=== PATIENT | female | born 1935 | race Caucasian/White ===

== ENCOUNTER 2016-11-05 13:55 | Emergency (ER) | payer OTHER, MEDICARE ==
[~2016-11-05] VITALS: Ht 167.6 cm; Wt 70.3 kg
[~2016-11-05 13:55] MED LIST: ASPIRIN EC81 M1 PO; ATORVASTATIN CA80 M1 PO; CENTRUM SILVER1 EAC3 PO; CITALOPRAM HBR20 MG PO; LEVOTHYROXINE50 MCG PO; LISINOPRIL10 M1 PO; PLAVIX75 M1 PO; SIMVASTATIN20 M2 PO; TYLENOL EXTRA500 M2 PO; VITAMIN B-121000 MC3 PO
--- NOTE | 2016-11-05 14:29 | ED NECK/BACK PAIN COMPLAINT ---
History of Present Illness General Chief Complaint: Lower Extremity Problems Stated Complaint: L LEG/GROIN PAIN Source: patient, family Exam Limitations: no limitations Vital Signs & Intake/Output Vital Signs & Intake/Output Vital Signs Date Time Temp Pulse Resp B/P B/P Pulse O2 O2 Flow FiO2 Mean Ox Delivery Rate 11/05 1624 97.6 61 18 150/68 98 Room Air 11/05 1400 98.0 76 20 115/57 96 Room Air Allergies Coded Allergies: No Known Allergies (02/12/16) Reconcile Medications Acetaminophen (Tylenol Extra Strength) 500 MG TABLET 1 TAB PO Q4P PRN PAIN Aspirin (Ecotrin*) 81 MG TABLET.DR 81 MG PO DAILY blood thinner Atorvastatin Calcium 80 MG TABLET 80 MG PO 1700 cholestrol Citalopram Hydrobromide (Citalopram HBr) 20 MG TABLET 1 TAB PO DAILY MENTAL HEALTH (Reported) Cyanocobalamin (Vitamin B-12) 1,000 MCG TABLET 1 TAB PO DAILY SUPPLEMENT ( Reported) Levothyroxine Sodium 50 MCG TABLET 1 TAB PO DAILY THYROID (Reported) Lisinopril 10 MG TABLET 1 TAB PO DAILY BP (Reported) Methylprednisolone. (Medrol) 4 MG TAB.DS.PK 1 DP PO AD back pain 6 on day 1 then reduce by one tablet daily until gone Multivit-Min/FA/Lycopen/Lutein (Centrum Silver Tablet) 1 EACH TABLET 1 TAB PO DAILY SUPPLEMENT (Reported) Triage Note: PT TO ED WITH DAUGHTER FOR C/O LEFT LEG PAIN RADIATING TO LEFT GROIN X A FEW WEEKS. WORSE TODAY. COMES AND GOES. PAIN IS WORSE WITH WALKING. Triage Nurses Notes Reviewed? yes Onset: Abrupt Duration: months Timing: recent history Quality/Severity: moderate, severe Location: lumbar spine Radiation: upper legs, lower legs, feet Method of Injury: unknown Loss of Consciousness: no loss of consciousness HPI: 81-year-old female comes into the emergency room for further evaluation of left lower back pain that radiates down her left leg. Symptoms may going on for the past couple months getting progressively worse over the past week. Patient reports that she's now got weakness in her left lower leg has some difficulty with ambulation but is able to walk with a walker. Denies any urinary bowel dysfunction. Denies any abdominal pain. Nothing seems to make the symptoms better. Patient comes in for further evaluation (ALISSON FIELDS) Past History Travel History Traveled to [place] past 21 day No Medical History Any Pertinent Medical History? see below for history Neurological: TIA EENT: cataracts, hearing loss Cardiovascular: hypertension, hyperlipidemia Respiratory: NONE Gastrointestinal: NONE Hepatic: NONE Renal: chronic kidney disease, STAGE 2 Musculoskeletal: spinal stenosis, S/P LUMBAR LAMI 2007 Psychiatric: depression Endocrine: hypothyroidism Blood Disorders: DVT Cancer(s): UTERINE CANCER [employer]/Reproductive: TOTAL HYSTERECTOMY-1985 History of MRSA: No History of VRE: No History of CDIFF: No Pneumonia Vaccine: 12/11/15 Influenza Vaccine: 02/22/16 Surgical History Surgical History: non-contributory Psychosocial History Who do you live with Patient/Self Services at Home None What is your primary language Macedonian Tobacco Use: Quit >30 days ago ETOH Use: denies use Illicit Drug Use: denies illicit drug use Family History Hx Contributory? No (ALISSON FIELDS) Review of Systems Review of Systems Constitutional: Reports: no symptoms. Eyes: Reports: no symptoms. Ears, Nose, Throat, Mouth: Reports: no symptoms. Respiratory: Reports: no symptoms. Cardiovascular: Reports: no symptoms. Gastrointestinal/Abdominal: Reports: no symptoms. Musculoskeletal: Reports: see HPI. Skin: Reports: no symptoms. Neurological/Psychological: Reports: no symptoms. All Other Systems: Reviewed and Negative (ALISSON FIELDS) Physical Exam Physical Exam General Appearance: well developed/nourished, mild distress Head: atraumatic Eyes: Bilateral: normal appearance. Ears, Nose, Throat, Mouth: hearing grossly normal, moist mucous membrane Neck: normal inspection Respiratory: normal breath sounds, no respiratory distress Cardiovascular: regular rate/rhythm Back: normal inspection, left lower paraspinal tenderness Extremities: normal range of motion Neurologic/Psych: awake, alert, oriented x 3, normal mood/affect Skin: intact, normal color, warm/dry Comments: 3/5 strength left lower extremity, 5 out of 5 strength right lower extremity, Patient cannot straight leg raise her left lower extremity secondary to weakness Patellar reflexes 1+ left Patellar reflex 2+ right Gross sensation intact bilaterally and equal (ALISSON FIELDS) Progress Differential Diagnosis: aortic dissection, carotid dissection, cauda equina syn, herniated disc, myofascial strain, pyelo/UTI, sciatica, spinal cord inj, thoracic outlet syn, T/L spine injury Plan of Care: Orders Procedure Date/time Status BASIC METABOLIC PANEL 11/05 1607 Complete Laboratory Tests 11/05/16 1623: Anion Gap 10, Estimated GFR 33 L, BUN/Creatinine Ratio 22.7, Glucose 77, Calcium 9.2 Diagnostic Imaging: Viewed by Me: CT Scan. Discussed w/RAD: CT Scan. Radiology Impression: XAM TYPE: CAT - CT LUMB SPINE WO IV CONTRAST EXAMINATION: CT LUMBAR SPINE WITHOUT CONTRAST CLINICAL INFORMATION: Low back pain radiating down left leg with motor weakness. COMPARISON: None. TECHNIQUE: Helical non- contrast CT images were obtained through the lumbar spine and 1.25 and 2.5 mm axial reconstructions were reviewed along with sagittal and coronal MPRs. DLP: 714.91 mGy-cm FINDINGS: There are 5 nonrib-bearing lumbar vertebrae. There are sequelae of an instrumented posterior decompressions and fusions at L4, L5 and S1. There are bilateral pedicular screws in L4, L5 and S1. These are joined by vertical rods bilaterally and there is a transverse bar at L4-L5. The hardware appears intact. There is a moderate grade 1 anterolisthesis of L4 on L5, and there is moderate narrowing of intervertebral disc height at this level. There is narrowing of intervertebral disc height at L5-S1, and the vertebral bodies appear partially fused. There is also narrowing of intervertebral disc height at L1-L2 and L2-L3 with vacuum disc changes at both these levels. A small amount of air is noted in the disc toward the left at T12-L1. Bone mineralization is diffusely decreased, consistent with osteopenia/osteoporosis. Heterogenous density with coarsened trabeculae is noted in the body of L1, most consistent with a hemangioma. There is loss of vertebral body height of L2 anteriorly of approximately 35%. There is mild posterior protrusion of the superior body of L2 into the spinal canal, but there does not appear to be significant central stenosis. There is an IVC filter with the tip at the level of the right renal artery. There is extensive atheromatous calcification of the aorta, and the infrarenal aorta is slightly ectatic. There are severe degenerative changes in the bilateral sacroiliac joints. There are nonobstructive calculi versus intrarenal calcifications bilaterally. SPINAL LEVELS: T12-L1: The disc configuration is normal. The central canal and neural foramina are widely patent. The facet joints are normal. L1-L2: There is mild bilateral facet arthropathy. As described above there is posterior protrusion of the superior body of L2 into the spinal canal, end there is a compression fracture of L2. There is a diffuse disc bulge and there is bilateral foraminal narrowing. L2-L3: There is mild to moderate bilateral facet arthropathy with ligamenta flava hypertrophy. There is a posterior disc protrusion extending into the left greater than right neural foramina and there is likely impingement on the exiting left L2 nerve root. There appears to be [id number] central stenosis. L3-L4: There is severe bilateral facet arthropathy, and there is evidence of lateral mass fusions. There is evidence of posterior decompression. Posterior disc contour appears normal. The neural foramina are patent. L4-L5: There is good osseous fusion of the lateral masses bilaterally. There has been a posterior decompression. There is unroofing of the disc as a result of the anterolisthesis and there are bilateral foraminal disc protrusions. There is no central stenosis. L5-S1: There has been a posterior decompression and there are bilateral lateral fusions which appear solid. There is a posterior osteophytic ridge extending into the right neural foramen, and there may be impingement on the exiting right L5 nerve root. There is no central stenosis. IMPRESSION: 1. There are sequelae of prior instrumented posterior decompressions and fusions at L4, L5 and S1. The hardware appears intact. 2. There is an age-indeterminate compression fracture the body of L2 as described above. There is no significant central stenosis. 3. There is a grade 1 anterolisthesis of L4 on L5. There is no central stenosis at this level. 4. There is a left foraminal disc protrusion at L2-L3 with likely impingement on the exiting left L2 nerve root. There appears to be [id number] central stenosis. 5. There are degenerative changes at multiple other levels as described above. DICTATED BY: KEVIN MCGOVERN MD DATE/TIME DICTATED:11/05/161521 MULE DEVELOPER:WANG (ALISSON FIELDS) Departure Departure Disposition: HOME OR SELF CARE Condition: Stable Clinical Impression Primary Impression: Lumbar back pain with radiculopathy affecting left lower extremity Referrals: MILIND ABEBE,SANTOS ROLLINS MD,[facility] (PCP/Family) Additional Instructions: Take Medrol Dosepak as prescribed. Follow-up with neurosurgeon provided. Rest. Take tramadol at home. Return if any concerns worsening symptoms. Call number on slip for outpatient MRI of low back. Please go over all results of today's visit with your primary care doctor. Contact your primary care doctor to let them know you were here in the emergency room. There may be nonspecific findings which may not be related to your visit today here in the emergency room but may require further evaluation and chronic monitoring by your primary care doctor. If you had a laceration today the chance of foreign body always remains. You should follow-up with your primary care doctor for recheck in 3-5 days for a wound check. If you had an x-ray done there is a chance that a fracture could have been missed on initial read and you should follow-up with your primary care doctor for repeat x-rays if symptoms persist. If your blood pressure was elevated here in the emergency room please have rechecked by her primary care doctor within the next 48 hours by your primary care doctor. If you were prescribed a narcotic here in the emergency room or any type of controlled substances you're not allowed to drive while taking this medication or operate any type of heavy machinery. Narcotics can make you feel lightheaded dizziness nausea and can cause constipation. You may need to hop picker a stool softener. Thank you for choosing [facility] emergency room. Please return to the emergency room immediately if you have any other concerns worsening of symptoms. Departure Forms: Customer Survey General Discharge Information Prescriptions: Current Visit Scripts Methylprednisolone. (Medrol) 1 DP PO AD #1 DP 6 on day 1 then reduce by one tablet daily until gone Comments 11/05/2016 4:21:09 PM Patient clinically looks well. she has some motor deficits in the left lower extremity. Case is discussed with Dr. JOHNSON. Patient is going to be started on a Medrol Dosepak and will require close follow-up. Patient was provided a slip for an outpatient MRI. The symptoms have been going on for months but progressively worse over the past week. Milind decision-making. Case discussed with Dr. Yan. They understand plan of care. BMP sent off for patient because she needs an outpatient MRI with and without contrast and she will need a creatinine and GFR. Patient and family understand and agree with plan of care. Patient will take her tramadol at home for the pain control. Using a walker at home. (MABEL TORREZ,ALISSON) PA/HEARING AID REPAIR TECHNICIAN Co-Sign Statement Statement: ED Attending supervision documentation- [X] I saw and evaluated the patient. I have also reviewed all the pertinent lab results and diagnostic results. I agree with the findings and the plan of care as documented in the PA's/HEARING AID REPAIR TECHNICIAN's documentation. [X] I have reviewed the ED Record and agree with the PA's/HEARING AID REPAIR TECHNICIAN's documentation. [] Additions or exceptions (if any) to the PAs/HEARING AID REPAIR TECHNICIAN's note and plan are summarized below: [] (SHERI ABEBE,REY Modi)
--- NOTE | 2016-11-05 15:41 | CT SCAN REPORT ---
EXAMINATION: CT LUMBAR SPINE WITHOUT CONTRAST CLINICAL INFORMATION: Low back pain radiating down left leg with motor weakness. COMPARISON: None. TECHNIQUE: Helical non-contrast CT images were obtained through the lumbar spine and 1.25 and 2.5 mm axial reconstructions were reviewed along with sagittal and coronal MPRs. DLP: 714.91 mGy-cm FINDINGS: There are 5 nonrib-bearing lumbar vertebrae. There are sequelae of an instrumented posterior decompressions and fusions at L4, L5 and S1. There are bilateral pedicular screws in L4, L5 and S1. These are joined by vertical rods bilaterally and there is a transverse bar at L4-L5. The hardware appears intact. There is a moderate grade 1 anterolisthesis of L4 on L5, and there is moderate narrowing of intervertebral disc height at this level. There is narrowing of intervertebral disc height at L5-S1, and the vertebral bodies appear partially fused. There is also narrowing of intervertebral disc height at L1-L2 and L2-L3 with vacuum disc changes at both these levels. A small amount of air is noted in the disc toward the left at T12-L1. Bone mineralization is diffusely decreased, consistent with osteopenia/osteoporosis. Heterogenous density with coarsened trabeculae is noted in the body of L1, most consistent with a hemangioma. There is loss of vertebral body height of L2 anteriorly of approximately 35%. There is mild posterior protrusion of the superior body of L2 into the spinal canal, but there does not appear to be significant central stenosis. There is an IVC filter with the tip at the level of the right renal artery. There is extensive atheromatous calcification of the aorta, and the infrarenal aorta is slightly ectatic. There are severe degenerative changes in the bilateral sacroiliac joints. There are nonobstructive calculi versus intrarenal calcifications bilaterally. SPINAL LEVELS: T12-L1: The disc configuration is normal. The central canal and neural foramina are widely patent. The facet joints are normal. L1-L2: There is mild bilateral facet arthropathy. As described above there is posterior protrusion of the superior body of L2 into the spinal canal, end there is a compression fracture of L2. There is a diffuse disc bulge and there is bilateral foraminal narrowing. L2-L3: There is mild to moderate bilateral facet arthropathy with ligamenta flava hypertrophy. There is a posterior disc protrusion extending into the left greater than right neural foramina and there is likely impingement on the exiting left L2 nerve root. There appears to be [id number] central stenosis. L3-L4: There is severe bilateral facet arthropathy, and there is evidence of lateral mass fusions. There is evidence of posterior decompression. Posterior disc contour appears normal. The neural foramina are patent. L4-L5: There is good osseous fusion of the lateral masses bilaterally. There has been a posterior decompression. There is unroofing of the disc as a result of the anterolisthesis and there are bilateral foraminal disc protrusions. There is no central stenosis. L5-S1: There has been a posterior decompression and there are bilateral lateral fusions which appear solid. There is a posterior osteophytic ridge extending into the right neural foramen, and there may be impingement on the exiting right L5 nerve root. There is no central stenosis. IMPRESSION: 1. There are sequelae of prior instrumented posterior decompressions and fusions at L4, L5 and S1. The hardware appears intact. 2. There is an age-indeterminate compression fracture the body of L2 as described above. There is no significant central stenosis. 3. There is a grade 1 anterolisthesis of L4 on L5. There is no central stenosis at this level. 4. There is a left foraminal disc protrusion at L2-L3 with likely impingement on the exiting left L2 nerve root. There appears to be [id number] central stenosis. 5. There are degenerative changes at multiple other levels as described above.
[2016-11-05] MEDS ORDERED: MEDROL4 M2 PO (16:11)
[2016-11-05 16:24] VITALS: BP 150/68
== END 2016-11-05 16:36 ==
LOC: ERH 13:55
DX: M54.16 Radiculopathy, lumbar region (principal)

== ENCOUNTER 2017-10-13 10:44 | Inpatient (IN) | payer OTHER, MEDICARE ==
[~2017-10-13] VITALS: Ht 167.6 cm; Wt 63.7 kg
[~2017-10-13 10:44] MED LIST changes: +MEDROL4 M2 PO
[2017-10-13 11:47] LABS: ABSOLUTE BASOPHIL COUNT 0 /CUMM (0.0-0.2); ABSOLUTE EOSINOPHIL COUNT 0.1 /CUMM (0.0-0.7); ABSOLUTE GRANULOCYTE CT 2.6 /CUMM (1.4-6.5); ABSOLUTE LYMPH COUNT 1.4 /CUMM (1.2-3.4); ABSOLUTE MONOCYTE COUNT 0.4 /CUMM (0.10-0.60); BASOPHIL % 0.3 % (0.0-2.0); EOSINOPHIL % 1.9 % (0-5); GRANULOCYTE % 57.3 % (42.2-75.2); HEMATOCRIT 29.8 % (37-47); MEAN CORPUSCULAR HGB 30.6 PG (27.0-31.0); MEAN CORPUSCULAR HGB CONC 33.6 G/DL (33.0-37.0); MEAN CORPUSCULAR VOLUME 91.1 FL (81.0-99.0); PLATELET COUNT 185 /CUMM (130-400); RED BLOOD CELL CT 3.27 /CUMM (4.20-5.40); WHITE BLOOD CELL COUNT 4.6 /CUMM (4.8-10.8)
[2017-10-13] MEDS ORDERED: GABAPENTIN600 M1 PO (12:04)
[2017-10-13] MEDS ORDERED: EDARBYCLOR 40-1 EACH PO (12:05)
[2017-10-13] MEDS ORDERED: TRAMADOL HCL50 M1 PO (12:06)
--- NOTE | 2017-10-13 12:06 | ED AMS/SEIZURE/WEAK/DIZZY ---
History of Present Illness General Chief Complaint: General Adult Stated Complaint: SIB DR. REA FOR DEHYDRATION? Source: patient Exam Limitations: no limitations Vital Signs & Intake/Output Vital Signs & Intake/Output Vital Signs Date Time Temp Pulse Resp B/P B/P Pulse O2 O2 Flow FiO2 Mean Ox Delivery Rate 10/13 1525 97.7 71 19 149/72 95 Room Air Room Air 10/13 1309 97.7 60 19 149/68 99 Room Air Room Air 10/13 1048 97.3 80 20 128/67 96 Room Air Allergies Coded Allergies: No Known Allergies (02/12/16) Reconcile Medications Atorvastatin Calcium 80 MG TABLET 80 MG PO 1700 cholestrol Azilsartan Med/Chlorthalidone (Edarbyclor 40-12.5 MG Tablet) 40 MG-12.5 MG TABLET 1 TAB PO DAILY HEART (Reported) Gabapentin 600 MG TABLET 1 CAP PO DAILY CRAMPS (Reported) Levothyroxine Sodium 50 MCG TABLET 1 TAB PO DAILY THYROID (Reported) Tramadol HCl 50 MG TABLET 1 TAB PO DAILY PRN PAIN (Reported) Triage Note: PT TO ED FOR ? DEHYDRATION, SENT IN BY DR REA. PT STATES 1 WEEK AGO SHE HAD DIARRHEA, NO VOMITING. C/O FEELING WEAK AND TIRED. WENT FOR BLOODWORK THIS AM. DENIES ANY PAIN. Triage Nurses Notes Reviewed? yes Onset: Abrupt Duration: week(s): Timing: recent history HPI: This is an 82 y/o female with PMHx of HTN, elevated cholesterol and anxiety c/o being weak, "cant think straight" and possible dehydration. One week ago pt had an episode of diarrhea that lasted throughout the night. Pt states that she has been having similar episodes of diarrhea once every several mo. In the past week pt has decreased appetite and has not been drinking enough fluids. Pt went to see GI doctor 3 days ago to asses her diarrhea bouts. Pt was given stool culture kit as well as was advised to get her blood work done. Pt was feeling weak this am and was advised by her PCP to go to the ER. Pt denies N/V, dysuria, hematuria , hematochezia, abd pain, CP, SOB, bowel movements in past several days. (John TORREZ,Vance) Past History Travel History Traveled to [place] past 21 day No Medical History Any Pertinent Medical History? see below for history Neurological: TIA EENT: cataracts, hearing loss Cardiovascular: hypertension, hyperlipidemia Respiratory: NONE Gastrointestinal: NONE Hepatic: NONE Renal: chronic kidney disease, STAGE 2 Musculoskeletal: spinal stenosis, S/P LUMBAR LAMI 2007 Psychiatric: depression Endocrine: hypothyroidism Blood Disorders: DVT Cancer(s): UTERINE CANCER FULL TIME PARAMEDIC/Reproductive: TOTAL HYSTERECTOMY-1985 History of MRSA: No History of VRE: No History of CDIFF: No Surgical History Surgical History: non-contributory Psychosocial History Who do you live with Patient/Self Services at Home None What is your primary language Irish Tobacco Use: Quit >30 days ago ETOH Use: denies use Illicit Drug Use: denies illicit drug use Family History Hx Contributory? No (Vance Ewing) Review of Systems Review of Systems Constitutional: Reports: see HPI. EENTM: Reports: no symptoms. Respiratory: Reports: no symptoms. Cardiovascular: Reports: no symptoms. GI: Denies: abdominal pain, bloating, constipation, nausea, bloody stool, vomiting. Genitourinary: Denies: dysuria, frequency, hematuria, hesitation, pain, urgency. Musculoskeletal: Denies: no symptoms. Skin: Reports: no symptoms. Neurological/Psychological: Reports: no symptoms. Hematologic/Endocrine: Reports: no symptoms. Immunologic/Allergic: Reports: no symptoms. All Other Systems: Reviewed and Negative (Vance Ewing) Physical Exam Physical Exam General Appearance: no apparent distress, alert, awake, comfortable Head: normal appearance Eyes: Bilateral: normal appearance. Ears, Nose, Throat: normal ENT inspection, hearing grossly normal, moist mucous membranes Neck: normal inspection Respiratory: normal breath sounds, chest non-tender, no respiratory distress, lungs clear Cardiovascular: regular rate/rhythm Gastrointestinal: normal bowel sounds, soft, non-tender Back: decreased range of motion Neurologic/Psych: awake, alert Skin: normal color, warm/dry Core Measures ACS in differential dx? Yes CVA/TIA Diagnosis No Sepsis Present: No Sepsis Focused Exam Completed? No (Vance Ewing) Progress Differential Diagnosis: arrythmia, alcohol intoxication, dehydration, electrolyte imbalance, hypoglycemia, pneumonia, post-traumatic vertigo, UTI/ pyelo Plan of Care: Orders Procedure Date/time Status Regular Diet 10/13 D Active Patient Data 10/13 1554 Active Telemetry/Provisioning Specialist 10/13 1541 Active OXYGEN SETUP (GEN) 10/13 1535 Active Saline Lock 10/13 1535 Active Admit to inpatient 10/13 1535 Active Vital Signs 10/13 1535 Active Activity/Ambulation 10/13 1535 Active Code Status 10/13 1535 Active URINALYSIS 10/13 1205 Complete TROPONIN LEVEL 10/13 1106 Complete MAGNESIUM 10/13 1106 Complete COMPREHENSIVE METABOLIC PANEL 10/13 1106 Complete CBC WITHOUT DIFFERENTIAL 10/13 1106 Complete EKG 10/13 1106 Active Laboratory Tests 10/13/17 1349: Anion Gap 9, Estimated GFR 31 L, BUN/Creatinine Ratio 25.0, Glucose 84, Calcium 8.7, Magnesium 1.4 L, Total Bilirubin 0.7, AST 35, ALT 27, Alkaline Phosphatase 57, Troponin I < 0.01, Total Protein 6.3, Albumin 3.3 L, Globulin 3.0, Albumin/ Globulin Ratio 1.1 10/13/17 1300: Urine Color YEL, Urine Clarity CLEAR, Urine pH 6.0, Ur Specific [place] <= 1.005 , Urine Protein NEG, Urine Ketones NEG, Urine Nitrite NEG, Urine Bilirubin NEG, Urine Urobilinogen 0.2, Ur Leukocyte Esterase NEG, Ur Microscopic EXAM NOT REQUIRED, Urine Hemoglobin NEG, Urine Glucose NEG 10/13/17 1224: CBC w Diff NO MAN DIFF REQ, RBC 3.41 L, MCV 90.2, MCH 30.7, MCHC 34.0, RDW 12.4 , MPV 9.0, Gran % 55.9, Lymphocytes % 34.1, Monocytes % 8.0, Eosinophils % 1.4, Basophils % 0.6, Absolute Granulocytes 2.8, Absolute Lymphocytes 1.7, Absolute Monocytes 0.4, Absolute Eosinophils 0.1, Absolute Basophils 0 Diagnostic Imaging: Viewed by Me: Radiology Read. Discussed w/RAD: Radiology Read. Radiology Impression: PATIENT: SHANELL ARMSTRONG PRESENT AGE: 82 PATIENT ACCOUNT NO: [id number] : 33 LOCATION: [facility] ORDERING PHYSICIAN: Vance TORREZ SERVICE DATE: 10/13/17 EXAM TYPE : RAD - XRY-PORTABLE CHEST XRAY EXAMINATION: XR PORTABLE CHEST CLINICAL INFORMATION: Increasing weakness. COMPARISON: Multiple chest x-ray dated 2006 TECHNIQUE: Portable frontal view of the chest was obtained. FINDINGS: Cardiomediastinal silhouette is within normal limits. Mild prominence of the pulmonary markings compatible with chronic change. No acute airspace opacity. There is no pleural effusion. Calcified pleural plaque left apex noted again. IMPRESSION: No acute pulmonary disease. Chronic changes. DICTATED BY: Hugo Thomas MD DATE/TIME DICTATED:10/13/171245 [address] LIAISON:WANG DATE/TIME TRANSCRIBED:10/13/171245 CONFIDENTIAL, DO NOT COPY WITHOUT APPROPRIATE AUTHORIZATION. <Electronically signed in Other Vendor System> SIGNED BY: Hugo Thomas MD 10/13/17 1250 Initial ED EKG: normal sinus rhythm, rate (60), peaked T waves (Vance Ewing) Departure Departure Disposition: STILL A PATIENT Condition: Stable Clinical Impression Primary Impression: Hyperkalemia Secondary Impressions: Acute electrocardiogram changes Referrals: Heron Rea MD (PCP/Family) Departure Forms: Customer Survey General Discharge Information Admission Note Spoke With: Juan Manuel Aggarwal MD Documentation of Exam: Documentation of any treatments & extenuating circumstances including Concerns Regarding Discharge (functional status, medication knowledge or non-compliance, living conditions, etc.) that warrant an admission rather than observation: Patient will require gentle IV hydration. Currently telemetry. Cardiac consultation. Repeat labs. Calcium gluconate. Medically not safe for discharge. Acute EKG changes. (Vance Ewing) PA/FRONT OFFICE SPECIALIST Co-Sign Statement Statement: ED Attending supervision documentation- x I saw and evaluated the patient. I have also reviewed all the pertinent lab results and diagnostic results. I agree with the findings and the plan of care as documented in the PA's/FRONT OFFICE SPECIALIST's documentation. Weak with diarrhea. Peaked twaves on EKG, K 5.6, chronic renal insufficiency at baseline. [] I have reviewed the ED Record and agree with the PA's/FRONT OFFICE SPECIALIST's documentation. [] Additions or exceptions (if any) to the PAs/FRONT OFFICE SPECIALIST's note and plan are summarized below: [] (Lani ABEBE,Amando) Critical Care Note Critical Care Note Critical Care Time: 30-74 min (35) (Vance Ewing)
--- NOTE | 2017-10-13 12:50 | RADIOLOGY REPORT ---
EXAMINATION: XR PORTABLE CHEST CLINICAL INFORMATION: Increasing weakness. COMPARISON: Multiple chest x-ray dated 07/14/2006 TECHNIQUE: Portable frontal view of the chest was obtained. FINDINGS: Cardiomediastinal silhouette is within normal limits. Mild prominence of the pulmonary markings compatible with chronic change. No acute airspace opacity. There is no pleural effusion. Calcified pleural plaque left apex noted again. IMPRESSION: No acute pulmonary disease. Chronic changes.
[2017-10-13 12:57] LABS: ABSOLUTE BASOPHIL COUNT 0 /CUMM (0.0-0.2); ABSOLUTE EOSINOPHIL COUNT 0.1 /CUMM (0.0-0.7); ABSOLUTE GRANULOCYTE CT 2.8 /CUMM (1.4-6.5); ABSOLUTE LYMPH COUNT 1.7 /CUMM (1.2-3.4); ABSOLUTE MONOCYTE COUNT 0.4 /CUMM (0.10-0.60); BASOPHIL % 0.6 % (0.0-2.0); EOSINOPHIL % 1.4 % (0-5); GRANULOCYTE % 55.9 % (42.2-75.2); HEMATOCRIT 30.8 % (37-47); MEAN CORPUSCULAR HGB 30.7 PG (27.0-31.0); MEAN CORPUSCULAR VOLUME 90.2 FL (81.0-99.0); PLATELET COUNT 186 /CUMM (130-400); RBC DISTRIBUTION WIDTH 12.4 % (11.5-14.5); RED BLOOD CELL CT 3.41 /CUMM (4.20-5.40)
--- NOTE | 2017-10-13 15:54 | History & Physical ---
Sourav ABEBE,[facility] 10/13/17 1554: General Information and HPI MD Statement: I have seen and personally examined SHANELL ARMSTRONG and documented this H&P. The patient is a 82 year old F who presented with a patient stated chief complaint of []. Source of Information: patient, old records Exam Limitations: no limitations History of Present Illness: The patient is a 82-year-old female with past medical history hypertension, hyperlipidemia and hypothyroidism. She presented to [facility] ED with complaint of generalized weakness and fatigue. Patient states that she has been having ongoing diarrhea for a long time. She has these spells every few months. She is currently being evaluated by GI services. She denies getting colonoscopy/endoscopy for the evaluation of diarrhea. She reports that she was told to keep a logbook to see what kind of food makes the diarrhea worse. She also seems to think that is somewhat stress related as well. About 1 week ago patient had 5 diarrheal episodes on Friday which lasted just for 1 day. She reported loose watery stools. As per patient they were not foul -smelling and nonbloody. Diarrheal episodes were also related with spasmodic abdominal pain. She did not experience any nausea or vomiting. She got in touch with GI who ordered blood test and stool tests. Today she went to rehabilitation program where her instructor thought that she might be dehydrated and advised her to go to her PCP. She called the PCPs office who recommended the patient go to [facility] ED for further evaluation. Denies any recent travel. She also denies any sick contacts. She denies any recent antibiotic course. She also denies any takeout food. Denies any abdominal surgeries other than hysterectomy Review of system is positive for feeling chills She denies any headaches change in vision chest pain shortness of breath abdominal pain or diarrhea, nausea at present. Does not report any urinary symptoms. There is no family history of ulcerative colitis/Crohn's disease in the family. Allergies/Medications Allergies: Coded Allergies: No Known Allergies (02/12/16) Home Med list Atorvastatin Calcium 80 MG TABLET 80 MG PO 1700 cholestrol Azilsartan Med/Chlorthalidone (Edarbyclor 40-12.5 MG Tablet) 40 MG-12.5 MG TABLET 1 TAB PO DAILY HEART (Reported) Gabapentin 600 MG TABLET 1 CAP PO DAILY CRAMPS (Reported) Levothyroxine Sodium 50 MCG TABLET 1 TAB PO DAILY THYROID (Reported) Psyllium Husk (Metamucil) 3.4 GRAM/5.4 GRAM POWDER 1 PAC PO DAILY SUPPLEMENT (Reported) Tramadol HCl 50 MG TABLET 1 TAB PO DAILY PRN PAIN (Reported) Vortioxetine Hydrobromide (Trintellix) 5 MG TABLET 10 MG PO DAILY MENTAL HEALTH (Reported) Past History Travel History Traveled to [place] past 21 day No Medical History Neurological: TIA EENT: cataracts, hearing loss Cardiovascular: hypertension, hyperlipidemia Respiratory: NONE Gastrointestinal: NONE Hepatic: NONE Renal: chronic kidney disease, STAGE 2 Musculoskeletal: spinal stenosis, S/P LUMBAR LAMI 2007 Psychiatric: depression Endocrine: hypothyroidism Blood Disorders: DVT Cancer(s): UTERINE CANCER 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 Home Who Do You Live With? self Services at Home: None Primary Language: Bermudian Smoking Status: Former Smoker ETOH Use: denies use Illicit Drug Use: denies illicit drug use Living Will? yes Functional Ability ADLs Independent: dressing, eating, toileting, bathing. Ambulation: independent IADLs Independent: shopping, housework, finances, food prep, telephone, transportation , medication admin. Review of Systems Review of Systems Constitutional: Reports: see HPI. Exam & Diagnostic Data Last 24 Hrs of Vital Signs/I&O Vital Signs Date Time Temp Pulse Resp B/P B/P Pulse O2 O2 Flow FiO2 Mean Ox Delivery Rate 10/13 2033 97.5 65 19 130/76 98 10/13 1918 97.8 72 20 159/70 98 Room Air 10/13 1852 98.7 76 18 165/77 96 Room Air 10/13 1809 98 Room Air 10/13 1525 97.7 71 19 149/72 95 Room Air Room Air 10/13 1309 97.7 60 19 149/68 99 Room Air Room Air 10/13 1048 97.3 80 20 128/67 96 Room Air Intake & Output 10/13 1600 10/13 0800 10/13 0000 Intake Total Output Total Balance Patient 140 lb Weight Weight Estimated Measurement Method Physical Exam General Appearance Alert, Oriented X3, Cooperative, No Acute Distress Skin No Rashes HEENT Atraumatic, PERRLA, EOMI, mucous memberanes dry Neck Supple, No JVD Lymphatic Cervical nl Cardiovascular Normal S1, Normal S2, No Murmurs Lungs Clear to Auscultation, Normal Air Movement Abdomen Normal Bowel Sounds, Soft, No Tenderness, No Hepatospenomegaly Neurological Normal Gait, Normal Speech, Normal Tone, Cranial Nerves 3-12 NL Extremities No Edema Last 24 Hrs of Labs/Alverto: Laboratory Tests 10/13/17 1349: Anion Gap 9, Estimated GFR 31 L, BUN/Creatinine Ratio 25.0, Glucose 84, Calcium 8.7, Magnesium 1.4 L, Total Bilirubin 0.7, AST 35, ALT 27, Alkaline Phosphatase 57, Troponin I < 0.01, Total Protein 6.3, Albumin 3.3 L, Globulin 3.0, Albumin/ Globulin Ratio 1.1 10/13/17 1300: Urine Color YEL, Urine Clarity CLEAR, Urine pH 6.0, Ur Specific [place] <= 1.005 , Urine Protein NEG, Urine Ketones NEG, Urine Nitrite NEG, Urine Bilirubin NEG, Urine Urobilinogen 0.2, Ur Leukocyte Esterase NEG, Ur Microscopic EXAM NOT REQUIRED, Urine Hemoglobin NEG, Urine Glucose NEG 10/13/17 1224: CBC w Diff NO MAN DIFF REQ, RBC 3.41 L, MCV 90.2, MCH 30.7, MCHC 34.0, RDW 12.4 , MPV 9.0, Gran % 55.9, Lymphocytes % 34.1, Monocytes % 8.0, Eosinophils % 1.4, Basophils % 0.6, Absolute Granulocytes 2.8, Absolute Lymphocytes 1.7, Absolute Monocytes 0.4, Absolute Eosinophils 0.1, Absolute Basophils 0 Microbiology 10/13 1713 STOOL: Clostridium difficile Toxin A & B - COLB Diagnostic Data EKG Results Normal sinus rhythm with peaking of T waves CXR Results IMPRESSION: No acute pulmonary disease. Chronic changes. Assessment/Plan Assessment: The patient is a 82-year-old female with past medical historyuterine cancer s/p hysterectomy, DVT s/p IVC not on AC, hypertension, hyperlipidemia and hypothyroidism. She presented to [facility] ED with complaint of generalized weakness and fatigue. She was sent in by her PCP Dr. Bundy for further evaluation She vitals within normal limits Admission labs are significant for H/H 10.5/30.8, potassium 5.6, chloride 111, bicarb 20, creatinine 1.6 with baseline In the ED patient received Kayexalate 60 mg PO ONCE, Novoling 10 units IV ONCE, Dextrose 25g IV ONCE, Calcium Gluconate 1g IV ONCE The patient is being admitted to telemetry floor for treatment and evaluation of following conditions #Hyperkalemia The patient presented with EKG changes and complaint of fatigue and weakness. She received above-mentioned intervention in the ED. Her hypokalemia is most likely coming from dehydration leading to HPI, and use of ARB. -We are going to repeat BP at 10 PM to monitor potassium level. -Hold ARB/HCTZ for now #GEORGETTE She has mild GEORGETTE in setting of dehydration with creatinine of 1.6. With her baseline being around 1.5 -Gentle IV hydration -Avoid nephrotoxins #Non-anion gap metabolic acidosis Bicarb 20 probably due to non-anion gap metabolic acidosis is likely in setting of diarrhea -Continue to monitor -D5 half-normal saline at the rate of 75 mL/h #Chronic diarrhea with acute exacerbation -Currently being worked up outpatient -Check C. difficile if any diarrheal episode -Outpatient GI follow-up, will consider GI evaluation and patient if her stay is prolonged #Hx of hypertension, hyperlipidemia, hypothyroidism Continue atorvastatin, levothyroxine, ARB/HCTZ remain on hold in setting of hyperkalemia #Regular diet/DVT prophylaxis with subcutaneous heparin/DNR/DNI Core Measures/Misc (01/19) Acute Coronary Syndrome ACS Diagnosis: No Congestive Heart Failure Congestive Heart Failure Diagnosis No Cerebrovascular Accident CVA/TIA Diagnosis: No VTE (View Protocol) VTE Risk Factors Age>40 No Mechanical VTE Prophylaxis d/t N/A MechProphylax Ordered No VTE Pharm Prophylaxis d/t NA PharmProphylax ordered Sepsis (View protocol) Sepsis Present: No If YES complete Sepsis Event Note If YES complete Sepsis Event Note Demetrio Valenzuela MD 10/13/17 1700: Assessment/Plan As Ranked By This Provider Problem List: 1. Hyperkalemia Core Measures/Misc (01/19) Sepsis (View protocol) If YES complete Sepsis Event Note If YES complete Sepsis Event Note Resident Review Statement Other Findings: History of Present Illness 82 year old woman with past medical history of hypertension, hyperlipidemia, anxiety, depression, CKD, spinal stenosis, hypothyroidism, DVT s/p IVC not on AC , and uterine cancer s/p hysterectomy sent in by her PCP for elevated potassium. Patient reports have bouts of diarrhea monthly for a "long time". She was seen by a toy electric train repairer in the past for evaluation of this. She followed with their office three days prior who ordered blood and stool tests. Complete blood count demonstrated a potassium of 5.8 for which patient was referred to the. She reports occasional chills with fatigue and weakness. Her bowel movements a loose, non-bloody, and brown. She admits to 5+ episodes the previous night. She denies any recent travel, antibiotics, consumption of raw/undercooked/ foods, but does admit have her lexapro switched to a new antidepressant that began with a "T" recently. Review of Systems She otherwise denies any fever, chest pain, shortness of breath, abdominal pain, nausea, vomiting, urinary complaints. Objective Vitals Temp 97.3-97.7, HR 60-83, RR 19-20, SBP 128-149, O2 95-99 Physical Exam -General: well developed, thin elderly woman in no acute distress -HEENT: NCAT, PERRL, EOMI, anciteric sclera, moist mucous membranes -Neck: Supple, no JVD, trachea midline -Cardio: Normal S1/S2 w/o m/g/r; RRR -Pulmonary: CTA bilaterally -Abdomen: Soft, NT, ND, BS+ -Neuro: Awake and alert, CN II-XII grossly intact -Extremities: normal pulses, no edema Labs / Imaging / Studies -CBC: WBC 5.0, Hgb 10.5, Hct 30.8, Plt 186 -BMP: Na 141, K 5.6, Cl 111, CO2 20, BUN 40, Creatinine 1.6, AG 9, Glu 84 -LFT: within normal limits -Misc: Mg 1.4, Troponin <0.01 -Urinalysis: unremarkable -CXR: unremarkable -EKG: NSR with peaked t-waves -ED intervention: * Kayexalate 60 mg PO ONCE * Novoling 10 units IV ONCE * Dextrose 25g IV ONCE * Calcium Gluconate 1g IV ONCE Assessment 82 year old woman with multiple medical problems seen for evaluation of hyperkalemia and ongoing diarrhea. Clinically patient currently feels well but is concerned about her constant loose bowel movements. Vitals signed and physical exam remain within normal limits. Significant labs include potassium of 5.6 creatinine is 1.6(baseline) and magnesium of 1.4. CBC, urinalysis, and troponin are unremarkable. CXR is negative. EKG demonstrates peaked t-waves. Patient received treatment for the hyperkalemia in the ED with kayexalate, insulin/dextrose, and calcium gluconate. Clinically patient appears to have worsening diarrhea of unclear etiology that is currently being worked up as an outpatient. He hyperkalemia is most likely secondary to the use of her ARB and dehydration. Patient is being admitted to the telemetry floor for further lab monitoring and control of her potassium and potentially blood pressure. Problem List -Hyperkalemia with EKG changes, likely due to dehydration and ARB -Acute on Chronic Diarrhea, etiology unclear -Hypertension -Hyperlipidemia -Anxiety / Depression -CKD -Spinal stenosis -Hypothyroidism -History of DVT s/p IVC not on AC -History of uterine cancer s/p hysterectomy Plan -Admit to telemetry -Avoid nephrotoxic agents -Guaic all stools -NS @ 75mL/hr -Hold ARB/HCTZ due to hyperkalemia -Continue: atorvastatin, levothyroxine, gabapentin, tramadol -Repeat serum chemistry tonight -C. diff toxin -Pain control with tramadol -Regular Diet -DVT PPx with subcutaneous heparin -FULL CODE AlessiaJuan Manuel 10/13/17 1806: Core Measures/Misc (01/19) Sepsis (View protocol) If YES complete Sepsis Event Note If YES complete Sepsis Event Note Attending MD Review Statement Attending Statement Attending MD Statement: examined this patient, discuss w/resident/PA/SENIOR LINUX UNIX ADMINISTRATOR, agreed w/resident/PA/SENIOR LINUX UNIX ADMINISTRATOR, reviewed EMR data (avail), discussed with nursing Attending Assessment/Plan: 82-year-old female with past medical history of hypertension and hyperlipidemia presented to the ER with chief complaint of weakness. Patient had episodes of diarrhea 1 week ago on Friday for 1 day. She had about 5 bowel movements at night and this happens every few months. The bowel movements were lose and watery with no blood. Patient went to see his GI doctor and was told to get some blood work done for which she went today. Patient after the blood work and went to some exercise place where she was found to be too weak and was told to go to her PCP. Patient called the PCP office and they told her to go to the ER. Hyperkalemia-with potassium of 5.6 with EKG changes of peaked T waves. Patient has had previous episodes of hyperkalemia with last one being 5.8 in September 2017. We will hold her ARB. We will repeat her potassium at night and if not getting better will give kayexelate. Will monitor her on telemetry . Her creatinine is slightly up from baseline. will give her gentle hydration.
[2017-10-13] MEDS ORDERED: METAMUCIL660 GM PO (16:59)
--- NOTE | 2017-10-13 18:06 | Admission Certification ---
Admission Certification Certification Statement - As attending physician, I certify that at the time of - admission, based on clinical presentation, severity of - symptoms, need for further diagnostic testing and - therapeutic interventions, and risk of adverse outcomes - without in-hospital treatment, in my clinical assessment, - this patient requires an acute hospital stay for a minimum - of two nights or longer. I have also considered psychsocial - factors such as support system, advanced age, financial - issues, cognitive issues, and failed out-patient treatments, - past re-admission history, safety of patient, and lack of - compliance as applicable. Specific rationale supporting this admission is: hyperkalemia with ekg changes
[2017-10-13 20:34] VITALS: BP 130/76
[2017-10-13] MEDS ORDERED: TRINTELLIX5 MG PO (21:27)
[2017-10-13 23:06] VITALS: BP 146/90
[2017-10-14 07:06] VITALS: BP 122/60
--- NOTE | 2017-10-14 07:28 | PN- Housestaff ---
Sourav ABEBE,[facility] 10/14/17 0727: Subjective Follow-up For: Hyperkalemia with EKG changes Acute renal injury Tele-Events Since Last Visit: Normal sinus rhythm with heart rate ranging in 60s Subjective: Seen and examined. Resting comfortably. No overnight acute events. Patient reports she was unable to sleep well because of the hospital setting. Denies any chest pain palpitations feels improvement in symptoms. Review of Systems Constitutional: Reports: see HPI. Objective Last 24 Hrs of Vital Signs/I&O Vital Signs Date Time Temp Pulse Resp B/P B/P Pulse O2 O2 Flow FiO2 Mean Ox Delivery Rate 10/14 0706 97.9 60 18 122/60 97 Room Air 10/13 2306 98.1 65 16 146/90 95 10/13 2034 97.5 65 19 130/76 98 10/13 1918 97.8 72 20 159/70 98 Room Air 10/13 1852 98.7 76 18 165/77 96 Room Air 10/13 1809 98 Room Air 10/13 1525 97.7 71 19 149/72 95 Room Air Room Air 10/13 1309 97.7 60 19 149/68 99 Room Air Room Air 10/13 1048 97.3 80 20 128/67 96 Room Air Intake & Output 10/14 0800 10/14 0000 10/13 1600 Intake Total 660 1195 Output Total Balance 660 1195 Intake, IV 600 1075 Intake, Oral 60 120 Patient 138 lb 140 lb Weight Weight Bed scale Estimated Measurement Method Physical Exam General Appearance: Alert, Oriented X3, Cooperative Cardiovascular: Normal S1, Normal S2 Lungs: Clear to Auscultation, Normal Air Movement Abdomen: Normal Bowel Sounds, Soft, No Tenderness Neurological: Normal Speech Current Medications: Current Medications Sig/Mikaela Start time Last Medication Dose Route Stop Time Status Admin Acetaminophen 650 MG Q6P PRN 10/13 1715 AC PO Atorvastatin Calcium 80 MG 1700 10/13 1700 AC 10/13 PO 1756 Calcium Gluconate 0 .STK-MED ONE 10/13 1735 DC IV Calcium Gluconate 1 GM ONCE ONE 10/13 1545 DC 10/13 Sodium Chloride 100 ML IV 10/13 1644 1759 Dextrose 25 GM ONCE ONE 10/13 1930 DC 10/13 IV 10/13 1931 1946 Dextrose 25 GM ONCE ONE 10/13 1545 DC 10/13 IV 10/13 1546 1759 Dextrose/Sodium 1,000 ML Q13H 10/13 2130 AC 10/13 Chloride IV 2210 Gabapentin 600 MG DAILY 10/14 0900 DC PO Gabapentin 600 MG 2100 10/13 2359 AC 10/13 PO 2316 Heparin Sodium 5,000 UNIT Q8 10/13 2200 AC 10/14 (Porcine) SC 0624 Insulin Human Regular 10 UNITS ONCE ONE 10/13 1545 DC 10/13 IV 10/13 1546 1800 Levothyroxine Sodium 0.05 MG DAILY 10/14 09 AC 10/14 PO 0739 Non-Formulary 0 SEE ADMIN CRITERIA 10/13 214 UNV Medication ANY Sodium Chloride 1,000 ML Q13H 10/13 2130 CAN IV Sodium Polystyrene 0 .STK-MED ONE 10/13 1734 DC Sulfonate .ROUTE Sodium Polystyrene 60 ML ONCE ONE 10/13 1545 DC 10/13 Sulfonate PO 10/13 1546 1759 Tramadol HCl 50 MG DAILY PRN 10/13 1700 AC PO Last 24 Hrs of Lab/Alverto Results Last 24 Hrs of Labs/Mics: Laboratory Tests 10/14/17 0631: Sodium Pending, Potassium Pending, Chloride Pending, Carbon Dioxide Pending, Anion Gap Pending, BUN Pending, Creatinine Pending, BUN/Creatinine Ratio Pending , Magnesium Pending, CBC w Diff NO MAN DIFF REQ, RBC 3.05 L, MCV 90.5, MCH 30.2 , MCHC 33.4, RDW 12.9, MPV 9.1, Gran % 50.5, Lymphocytes % 39.5, Monocytes % 8.6 , Eosinophils % 1.2, Basophils % 0.2, Absolute Granulocytes 2.6, Absolute Lymphocytes 2.0, Absolute Monocytes 0.4, Absolute Eosinophils 0.1, Absolute Basophils 0 10/13/17 2305: Anion Gap 8, Estimated GFR 33 L, BUN/Creatinine Ratio 21.3, Magnesium 1.3 L 10/13/17 1349: Anion Gap 9, Estimated GFR 31 L, BUN/Creatinine Ratio 25.0, Glucose 84, Calcium 8.7, Magnesium 1.4 L, Total Bilirubin 0.7, AST 35, ALT 27, Alkaline Phosphatase 57, Troponin I < 0.01, Total Protein 6.3, Albumin 3.3 L, Globulin 3.0, Albumin/ Globulin Ratio 1.1 10/13/17 1300: Urine Color YEL, Urine Clarity CLEAR, Urine pH 6.0, Ur Specific [place] <= 1.005 , Urine Protein NEG, Urine Ketones NEG, Urine Nitrite NEG, Urine Bilirubin NEG, Urine Urobilinogen 0.2, Ur Leukocyte Esterase NEG, Ur Microscopic EXAM NOT REQUIRED, Urine Hemoglobin NEG, Urine Glucose NEG 10/13/17 1224: CBC w Diff NO MAN DIFF REQ, RBC 3.41 L, MCV 90.2, MCH 30.7, MCHC 34.0, RDW 12.4 , MPV 9.0, Gran % 55.9, Lymphocytes % 34.1, Monocytes % 8.0, Eosinophils % 1.4, Basophils % 0.6, Absolute Granulocytes 2.8, Absolute Lymphocytes 1.7, Absolute Monocytes 0.4, Absolute Eosinophils 0.1, Absolute Basophils 0 Microbiology 10/13 1713 STOOL: Clostridium difficile Toxin A & B - COLB Assessment/Plan Assessment: The patient is a 82-year-old female with past medical historyuterine cancer s/p hysterectomy, DVT s/p IVC not on AC, hypertension, hyperlipidemia and hypothyroidism. She presented to [place] ED with complaint of generalized weakness and fatigue. She was sent in by her PCP Dr. Bundy for further evaluation The patient is being evaluated for following condition #Hyperkalemia-reolved The patient presented with EKG changes and complaint of fatigue and weakness she received calcium gluconate Novolin dextrose and Kayexalate in the ED. Her hyperkalemia was most likely secondary to dehydration leading to ARB added insult with use of ARB -Resolved -On discharge we will be discontinuing the ARB #GEORGETTE-resolved She has mild GEORGETTE in setting of dehydration with creatinine of 1.6. With her baseline being around 1.5, resolved with gentle IV hydration back to baseline at 1.5-1.4 #Non-anion gap metabolic acidosis resolved #Chronic diarrhea with acute exacerbation -Currently being worked up outpatient -Check C. difficile if any diarrheal episode #Hx of hypertension, hyperlipidemia, hypothyroidism Continue atorvastatin, levothyroxine, ARB/HCTZ remain on hold in setting of hyperkalemia #Regular diet/DVT prophylaxis with subcutaneous heparin/DNR/DNI Problem List: 1. Hyperkalemia Pain Ratin Pain Location: na Pain Goal: Pain 4 or less Pain Plan: prn Tomorrow's Labs & Rationales: bep Apergis MD,Katiana 10/14/17 1158: Attending MD Review Statement Attending Statement Attending MD Statement: examined this patient, discuss w/resident/PA/BOILER RIVETER, agreed w/resident/PA/BOILER RIVETER, reviewed EMR data (avail) Attending Assessment/Plan: 82F PMH HTN, HLD, anxiety, CKD stage 3a, spinal stenosis, hypothyroidism, DVT s/ p IVC not on AC, and uterine cancer s/p hysterectomy admitted with dehydration, weakness, hyperkalemia, and EKG changes. Patient had diarrhea and decreased PO intake in the two days prior to admission, became weak, saw her PCP, found to have elevated potassium 5.6. In ER had EKG with peaked T-waves in anterior leads. Given calcium gluconate, insulin, D50, IV fluids with improvement in potassium. Patient feels great today and wants to go home. She has no complaints. No telemetry events. 1. Hyperkalemia induced EKG changes 2. Dehydration 3. Acute on chronic (stage 3) kidney injury 4. Diarrhea of presumed infectious origin Plan - Continue on telemetry - Repeat EKG - Discontinue ARB, would discontinue ARB/ACEi permanently given EKG changes and advise against restarting or starting any potassium sparing diuretics - Continue remaining home medications - Monitor BP - IV hydration - DVT PPx - Would monitor overnight for BP and potassium, repeat EKG in the morning, likely discharge tomorrow morning
[2017-10-14 07:43] LABS: ABSOLUTE BASOPHIL COUNT 0 /CUMM (0.0-0.2); ABSOLUTE EOSINOPHIL COUNT 0.1 /CUMM (0.0-0.7); ABSOLUTE GRANULOCYTE CT 2.6 /CUMM (1.4-6.5); ABSOLUTE MONOCYTE COUNT 0.4 /CUMM (0.10-0.60); BASOPHIL % 0.2 % (0.0-2.0); EOSINOPHIL % 1.2 % (0-5); GRANULOCYTE % 50.5 % (42.2-75.2); HEMATOCRIT 27.6 % (37-47); MEAN CORPUSCULAR HGB 30.2 PG (27.0-31.0); MEAN CORPUSCULAR HGB CONC 33.4 G/DL (33.0-37.0); MEAN CORPUSCULAR VOLUME 90.5 FL (81.0-99.0); MEAN PLATELET VOLUME 9.1 FL (7.4-10.4); PLATELET COUNT 180 /CUMM (130-400); RBC DISTRIBUTION WIDTH 12.9 % (11.5-14.5); RED BLOOD CELL CT 3.05 /CUMM (4.20-5.40); WHITE BLOOD CELL COUNT 5.2 /CUMM (4.8-10.8)
[2017-10-14 14:00] VITALS: BP 160/68
--- NOTE | 2017-10-14 14:19 | Cons- Cardiology ---
General Information and HPI Consulting Request Date of Consult: 10/14/17 Requested By: Katiana Gutierrez MD Reason for Consult: Hyperkalemia with EKG changes History of Present Illness: The patient is an 82-year-old female with history of hypertension, hyperlipidemia, and hypothyroidism who presented with complaint of diarrhea. She has been having diarrhea for months which has been worse over the past week. She notes poor p.o. intake with the diarrhea. No chest pain. No shortness of breath. No palpitations. No diaphoresis. No vomiting. No syncope. She has no history of cardiac disease. She has a history of hypertension which has been controlled on Azilsartan/Chlorthalidone. She also has hyperlipidemia which has been controlled on atorvastatin. She was noted in the emergency department to have hyperkalemia with peaked T waves. Allergies/Medications Allergies: Coded Allergies: No Known Allergies (02/12/16) Home Med List: Atorvastatin Calcium 80 MG TABLET 80 MG PO 1700 cholestrol Azilsartan Med/Chlorthalidone (Edarbyclor 40-12.5 MG Tablet) 40 MG-12.5 MG TABLET 1 TAB PO DAILY HEART (Reported) Gabapentin 600 MG TABLET 1 CAP PO DAILY CRAMPS (Reported) Levothyroxine Sodium 50 MCG TABLET 1 TAB PO DAILY THYROID (Reported) Psyllium Husk (Metamucil) 3.4 GRAM/5.4 GRAM POWDER 1 PAC PO DAILY SUPPLEMENT (Reported) Tramadol HCl 50 MG TABLET 1 TAB PO DAILY PRN PAIN (Reported) Vortioxetine Hydrobromide (Trintellix) 5 MG TABLET 10 MG PO DAILY MENTAL HEALTH (Reported) Current Medications: Current Medications Sig/Mikaela Start time Last Medication Dose Route Stop Time Status Admin Acetaminophen 650 MG Q6P PRN 10/13 1715 AC PO Atorvastatin Calcium 80 MG 1700 10/13 1700 AC 10/13 PO 1756 Calcium Gluconate 0 .STK-MED ONE 10/13 1735 DC IV Calcium Gluconate 1 GM ONCE ONE 10/13 1545 DC 10/13 Sodium Chloride 100 ML IV 10/13 1644 1759 Dextrose 25 GM ONCE ONE 10/13 1930 DC 10/13 IV 10/13 1931 1946 Dextrose 25 GM ONCE ONE 10/13 1545 DC / IV 10/13 1546 1759 Dextrose/Sodium 1,000 ML Q13H 10/13 2130 DC 10/13 Chloride IV 2210 Gabapentin 600 MG DAILY 10/14 0900 DC PO Gabapentin 600 MG 2100 10/13 2359 AC 10/13 PO 2316 Heparin Sodium 5,000 UNIT Q8 10/13 2200 AC 10/14 (Porcine) SC 1330 Insulin Human Regular 10 UNITS ONCE ONE 10/13 1545 DC 10/13 IV 10/13 1546 1800 Levothyroxine Sodium 0.05 MG DAILY 10/14 0900 AC 10/14 PO 0739 Non-Formulary 0 SEE ADMIN CRITERIA 10/13 2145 UNV Medication ANY Sodium Chloride 1,000 ML Q13H 10/13 2130 CAN IV Sodium Polystyrene 0 .STK-MED ONE 10/13 1734 DC Sulfonate .ROUTE Sodium Polystyrene 60 ML ONCE ONE 10/13 1545 DC 10/13 Sulfonate PO 10/13 1546 1759 Tramadol HCl 50 MG DAILY PRN 10/13 1700 AC PO Review of Systems Review of Systems: No rash. No tremor. No fever. No chills. All other systems were reviewed, and were noted to be negative. 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 Home Who Do You Live With? self Services at Home: None Primary Language: Yakut Smoking Status: Former Smoker ETOH Use: denies use Illicit Drug Use: denies illicit drug use Living Will? yes Functional Ability ADLs Independent: dressing, eating, toileting, bathing. Ambulation: independent IADLs Independent: shopping, housework, finances, food prep, telephone, transportation , medication admin. ECHO Results (as available) Report: CONCLUSIONS Normal global left ventricular size, wall thickness, systolic function with no obvious regional wall motion abnormalities. Left ventricular ejection fraction is estimated at >65 %. Mild left atrial dilatation. There is mild to moderate thickening of the mitral valve leaflets especially the anterior leaflet. There is moderate calcification of the mitral annulus posteriorly. There is mild mitral regurgitation. Diffuse thickening (sclerosis) of the aortic valve cusps without reduced excursion. No aortic stenosis. Pulmonary artery systolic pressure is normal. Exam & Diagnostic Data Vital Signs and I&O Vital Signs Date Time Temp Pulse Resp B/P B/P Pulse O2 O2 Flow FiO2 Mean Ox Delivery Rate 10/14 0706 97.9 60 18 122/60 97 Room Air 10/13 2306 98.1 65 16 146/90 95 10/13 2034 97.5 65 19 130/76 98 10/13 1918 97.8 72 20 159/70 98 Room Air 10/13 1852 98.7 76 18 165/77 96 Room Air 10/13 1809 98 Room Air 10/13 1525 97.7 71 19 149/72 95 Room Air Room Air Intake & Output 10/14 1600 10/14 0800 10/14 0000 10/13 1600 10/13 0800 10/13 0000 Intake Total 660 1195 Output Total Balance 660 1195 Intake, IV 600 1075 Intake, Oral 60 120 Patient 138 lb 140 lb Weight Weight Bed scale Estimated Measurement Method Physical Exam: Gen: The patient is in no acute distress HEENT: Normal nose, ears, and oropharynx. Pupils equal bilaterally. Conjunctiva normal. Neck: Supple with no JVD, no masses, and no thyromegaly Lungs: Clear to auscultation with normal respiratory effort Heart: RRR, S1, S2, no murmurs. No peripheral edema, 2+ pulses in the lower extremities bilaterally Abdomen: Soft, nontender, no masses. No hepatomegaly. No splenomegaly Extremities: No clubbing or cyanosis. Normal muscle strength in the upper and lower extremities Skin: Normal skin turgor with no skin ulcers or lesions noted. Neuro: Cranial nerves intact. Sensation intact Psych: Alert and oriented x 3 with appropriate affect Labs/Alverto Results: Laboratory Tests 10/14 10/13 10/13 0631 2305 1349 Chemistry Sodium (137 - 145 mmol/L) 143 143 141 Potassium (3.5 - 5.1 mmol/L) 4.5 4.9 5.6 H Chloride (98 - 107 mmol/L) 113 H 114 H 111 H Carbon Dioxide (22 - 30 mmol/L) 22 21 L 20 L Anion Gap (5 - 16) 9 8 9 BUN (7 - 17 mg/dL) 28 H 32 H 40 H Creatinine (0.5 - 1.0 mg/dL) 1.4 H 1.5 H 1.6 H Estimated GFR (>60 ml/min) 36 L 33 L 31 L BUN/Creatinine Ratio (7 - 25 %) 20.0 21.3 25.0 Glucose (65 - 99 mg/dL) 84 Calcium (8.4 - 10.2 mg/dL) 8.7 Magnesium (1.6 - 2.3 mg/dL) 1.3 L 1.3 L 1.4 L Total Bilirubin (0.2 - 1.3 mg/dL) 0.7 AST (14 - 36 U/L) 35 ALT (9 - 52 U/L) 27 Alkaline Phosphatase (<127 U/L) 57 Troponin I (< 0.11 ng/ml) < 0.01 Total Protein (6.3 - 8.2 g/dL) 6.3 Albumin (3.5 - 5.0 g/dL) 3.3 L Globulin (1.9 - 4.2 gm/dL) 3.0 Albumin/Globulin Ratio (1.1 - 2.2 %) 1.1 Hematology CBC w Diff NO MAN DIFF REQ WBC (4.8 - 10.8 /CUMM) 5.2 RBC (4.20 - 5.40 /CUMM) 3.05 L Hgb (12.0 - 16.0 G/DL) 9.2 L Hct (37 - 47 %) 27.6 L MCV (81.0 - 99.0 FL) 90.5 MCH (27.0 - 31.0 PG) 30.2 MCHC (33.0 - 37.0 G/DL) 33.4 RDW (11.5 - 14.5 %) 12.9 Plt Count (130 - 400 /CUMM) 180 MPV (7.4 - 10.4 FL) 9.1 Gran % (42.2 - 75.2 %) 50.5 Lymphocytes % (20.5 - 51.1 %) 39.5 Monocytes % (1.7 - 9.3 %) 8.6 Eosinophils % (0 - 5 %) 1.2 Basophils % (0.0 - 2.0 %) 0.2 Absolute Granulocytes (1.4 - 6.5 /CUMM) 2.6 Absolute Lymphocytes (1.2 - 3.4 /CUMM) 2.0 Absolute Monocytes (0.10 - 0.60 /CUMM) 0.4 Absolute Eosinophils (0.0 - 0.7 /CUMM) 0.1 Absolute Basophils (0.0 - 0.2 /CUMM) 0 10/13 10/13 1300 1224 Hematology CBC w Diff NO MAN DIFF REQ WBC (4.8 - 10.8 /CUMM) 5.0 RBC (4.20 - 5.40 /CUMM) 3.41 L Hgb (12.0 - 16.0 G/DL) 10.5 L Hct (37 - 47 %) 30.8 L MCV (81.0 - 99.0 FL) 90.2 MCH (27.0 - 31.0 PG) 30.7 MCHC (33.0 - 37.0 G/DL) 34.0 RDW (11.5 - 14.5 %) 12.4 Plt Count (130 - 400 /CUMM) 186 MPV (7.4 - 10.4 FL) 9.0 Gran % (42.2 - 75.2 %) 55.9 Lymphocytes % (20.5 - 51.1 %) 34.1 Monocytes % (1.7 - 9.3 %) 8.0 Eosinophils % (0 - 5 %) 1.4 Basophils % (0.0 - 2.0 %) 0.6 Absolute Granulocytes (1.4 - 6.5 /CUMM) 2.8 Absolute Lymphocytes (1.2 - 3.4 /CUMM) 1.7 Absolute Monocytes (0.10 - 0.60 /CUMM) 0.4 Absolute Eosinophils (0.0 - 0.7 /CUMM) 0.1 Absolute Basophils (0.0 - 0.2 /CUMM) 0 Urines Urine Color (YEL,AMB,STR) YEL Urine Clarity (CLEAR) CLEAR Urine pH (5.0 - 8.0) 6.0 Ur Specific [place] (1.001 - 1.035) <= 1.005 Urine Protein (NEG,<30 MG/DL) NEG Urine Ketones (NEG) NEG Urine Nitrite (NEG) NEG Urine Bilirubin (NEG) NEG Urine Urobilinogen (0.1 - 1.0 EU/dl) 0.2 Ur Leukocyte Esterase (NEG) NEG Ur Microscopic EXAM NOT REQUIRED Urine Hemoglobin (NEG) NEG Urine Glucose (N MG/DL) NEG Diagnostic Data EKG Results EKG tracing is independently reviewed, and reveals normal sinus rhythm at 60 with right bundle branch block and left anterior fascicular block. Peaked T waves are noted, which are new compared to March 2016. CXR Results Cardiomediastinal silhouette is within normal limits. Mild prominence of the pulmonary markings compatible with chronic change. No acute airspace opacity. There is no pleural effusion. Calcified pleural plaque left apex noted again. Other Results Echocardiogram 02/14/16: Normal global left ventricular size, wall thickness, systolic function with no obvious regional wall motion abnormalities. Left ventricular ejection fraction is estimated at >65 %. Mild left atrial dilatation. There is mild to moderate thickening of the mitral valve leaflets especially the anterior leaflet. There is moderate calcification of the mitral annulus posteriorly. There is mild mitral regurgitation. Diffuse thickening (sclerosis) of the aortic valve cusps without reduced excursion. No aortic stenosis. Pulmonary artery systolic pressure is normal. Assessment/Plan Assessment/Plan The patient is an 82-year-old female with history of hypertension and hyperlipidemia presenting with which has been present for months but was worse over the past week.. She was noted to have evidence of acute kidney injury and hyperkalemia. EKG showed peaked T waves. The potassium has now normalized. Recommendations: * Repeat EKG for resolution of peaked T waves now that potassium has normalized * I agree with discontinuing the ARB given the hyperkalemia * Agree with IV hydration * Supplement magnesium * Given the electrolyte abnormalities and acute kidney injury, would recommend starting amlodipine for blood pressure control in place of the ARB and diuretic Consult Acknowledgment - Thank you for your consult request.
--- NOTE | 2017-10-14 14:21 | Patient Discharge Instructions ---
Discharge Instructions General Discharge Information You were seen/treated for: High potassium numbers Special Instructions: -Please follow-up with your primary care provider within 1 week of discharge -You have been provided a prescription for blood work, please get it done on -Please follow-up with your video game technician within 1 week of discharge -We are discontinuing 1 of her blood pressure medication because of high potassium numbers and starting you on another -You will require monitoring of your blood pressure numbers by her primary care and your video game technician -For ongoing diarrhea please follow-up with Dr. Serra, call the provided number to make an appointment Diet Recommended Diet: Heart Healthy Activity Activity Self Limited: Yes Acute Coronary Syndrome Inclusion Criteria At DC or during hospital stay patient has or had the following: ACS DIAGNOSIS No Discharge Core Measures Meds if any: Prescribed or Continued at Discharge Meds if any: NOT Prescribed or Continued at Discharge Congestive Heart Failure Inclusion Criteria At DC or during hospital stay patient has or had the following: CHF DIAGNOSIS No Discharge Core Measures Meds if any: Prescribed or Continued at Discharge Meds if any: NOT Prescribed or Continued at Discharge Cerebrovascular accident Inclusion Criteria At DC or during hospital stay patient has or had the following: CVA/TIA Diagnosis No Discharge Core Measures Meds if any: Prescribed or Continued at Discharge Meds if any: NOT Prescribed or Continued at Discharge Venous thromboembolism Inclusion Criteria VTE Diagnosis No VTE Type NONE VTE Confirmed by (Test) NONE Discharge Core Measures - Per Current guidelines, there needs to be overlap - treatment for the first 5 days of Warfarin therapy. - If discharged on Warfarin prior to 5 days of - overlap therapy, the patient will need to be - assessed for post discharge needs including - *Post discharge parental anticoagulation - *Warfarin and/or parental anticoagulation education - *Follow up date to check INR post discharge At least 5 days overlap therapy as Inpatient No Meds if any: Prescribed or Continued at Discharge Note: Overlap Therapy is Warfarin and Anticoagulant Meds if any: NOT Prescribed or Continued at Discharge
[2017-10-14] MEDS ORDERED: AMLODIPINE BESYL5 M1 PO (15:57)
--- NOTE | 2017-10-14 18:37 | Discharge Summary ---
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 Prior to admission, the Patient reports having bouts of diarrhea monthly for a "long time". She was seen by a marketing co op in the past for evaluation of this. She followed with their office three days prior who ordered blood and stool tests. A CBC demonstrated a potassium of 5.8 for which patient was referred to the ED. Vitals at the time of presentation. Temp 97.3-97.7, HR 60-83, RR 19-20, SBP 128 -149, O2 95-99 Labs CBC: WBC 5.0, Hgb 10.5, Hct 30.8, Plt 186. BMP: Na 141, K 5.6, Cl 111, CO2 20, BUN 40, Creatinine 1.6, AG 9, Glu 84 LFT: within normal limits. Misc: Mg 1.4, Troponin <0.01 EKG: NSR with peaked t-waves In the emergency department she was given: Kayexalate 60 mg PO ONCE, Novoling 10 units IV ONCE, Dextrose 25g IV ONCE and Calcium Gluconate 1g IV ONCE. She was admitted to the telemetry service and below is a summarry of care she received under us. Her Problem List included: -Hyperkalemia with induced EKG changes, likely due to dehydration and ARB -Acute on Chronic Diarrhea, etiology unclear, outpatient work up currently pending. -Hypertension -Hyperlipidemia -Anxiety / Depression -CKD -Spinal stenosis -Hypothyroidism -History of DVT s/p IVC not on AC -History of uterine cancer s/p hysterectomy The patient was admitted to the telemetry service. She was initially hydrated with normal saline running at 75 mL per hour. Her combination of ARB/ hydrochlorothiazide was held. We obtained a cardiology consultation and recommendations were followed. An EKG was repeated to look for resolution of peaked T waves. It was recommended that the patient should be started on a calcium channel bryce in place of the ARB and diuretic. A C. difficile toxin was sent which is currently pending. Pain was controlled with tramadol. Patient's home medications including atorvastatin levothyroxine, gabapentin and tramadol were all continued. Patient was maintained on regular diet. Patient's DVT prophylaxis was maintained with subcutaneous heparin. amadol She was a DNR/DNI over the course of the admission. Allergies: Coded Allergies: No Known Allergies (02/12/16) Pertinent Lab Results: SERVICE DATE: 10/13/17-1205 EXAM TYPE: RAD - XRY-PORTABLE CHEST XRAY EXAMINATION: XR PORTABLE CHEST CLINICAL INFORMATION: Increasing weakness. COMPARISON: Multiple chest x-ray dated 07/14/2006 TECHNIQUE: Portable frontal view of the chest was obtained. FINDINGS: Cardiomediastinal silhouette is within normal limits. Mild prominence of the pulmonary markings compatible with chronic change. No acute airspace opacity. There is no pleural effusion. Calcified pleural plaque left apex noted again. IMPRESSION: No acute pulmonary disease. Chronic changes. DICTATED BY: Hugo Thomas MD Disposition Summary Disposition Principal Diagnosis: -Hyperkalemia with EKG changes, likely due to dehydration and ARB Additional Diagnosis: -Acute on Chronic Diarrhea, etiology unclear -Hypertension -Hyperlipidemia -Anxiety / Depression -CKD -Spinal stenosis -Hypothyroidism -History of DVT s/p IVC not on AC -History of uterine cancer s/p hysterectomy Discharge Disposition: SNF Discharge Instructions General Discharge Information Code Status: Do Not Resucitate/Intubat Patient's Diet: Regular Diet Limit 2 gram NA Limit 2 gram K Patient's Activity: As Toleratred Follow-Up Instructions/Appts: Please follow up with your PCP within seven days. Please follow up with the flight radio officer withing seven days. Please follow up with the GI doctor if you continue to experience worsening diarrhea. Medications at Discharge Discharge Medications: Stop taking the following medications: Azilsartan Med/Chlorthalidone (Edarbyclor 40-12.5 MG Tablet) 40 MG-12.5 MG TABLET ORAL DAILY Qty = 90 Continue taking these medications: Levothyroxine Sodium (Levothyroxine Sodium) 50 MCG TABLET 1 Tablet ORAL DAILY Qty = 90 Comments: Last Taken: 03/20/16 Time: 0900 Atorvastatin Calcium (Atorvastatin Calcium) 80 MG TABLET 80 Milligram ORAL 5 PM Days = 28 Comments: Last Taken: 03/19/16 Time: 1700 Gabapentin (Gabapentin) 600 MG TABLET 1 Capsule ORAL DAILY Qty = 90 Tramadol HCl (Tramadol HCl) 50 MG TABLET 1 Tablet ORAL DAILY as needed for PAIN Qty = 90 Psyllium Husk (Metamucil) 3.4 GRAM/5.4 GRAM POWDER 1 Packet ORAL DAILY Vortioxetine Hydrobromide (Trintellix) 5 MG TABLET 10 Milligram ORAL DAILY Qty = 30 Start taking the following new medications: Amlodipine Besylate (Amlodipine Besylate) 5 MG TABLET 5 Milligram ORAL DAILY Qty = 30 No Refills Copies To: Vlad ABEBE,Heron Gary; Joao ABEBE,Spike
[2017-10-14 22:20] VITALS: BP 120/60
[2017-10-15 07:07] VITALS: BP 130/54
--- NOTE | 2017-10-15 07:24 | PN- Housestaff ---
Sourav ABEBE,Diana 10/15/17 0723: Subjective Follow-up For: Hyperkalemia with EKG changes Tele-Events Since Last Visit: Normal sinus rhythm with heart rate ranging from 60s-80s Subjective: Patient seen and examined. Resting comfortably. Wants to be discharged home. Was evaluated by PT yesterday she might require short-term rehab on discharge. Patient was resistant to the idea. She is asking for a GI evaluation had 7 episodes of diarrhea. Is being evaluated by GI as an outpatient for now. Review of Systems Constitutional: Reports: see HPI. Objective Last 24 Hrs of Vital Signs/I&O Vital Signs Date Time Temp Pulse Resp B/P B/P Pulse O2 O2 Flow FiO2 Mean Ox Delivery Rate 10/15 0707 98.6 67 12 130/54 97 Room Air 10/14 2220 98.3 88 12 120/60 99 Room Air 10/14 1616 69 160/68 10/14 1400 98.2 69 20 160/68 98 Intake & Output 10/15 1600 10/15 0800 10/15 0000 Intake Total Output Total Balance Patient 141 lb Weight Weight Bed scale Measurement Method Physical Exam General Appearance: Alert, Oriented X3, Cooperative Cardiovascular: Normal S1, Normal S2 Lungs: Clear to Auscultation Abdomen: Normal Bowel Sounds, Soft, No Tenderness Neurological: Normal Speech Current Medications: Current Medications Sig/Mikaela Start time Last Medication Dose Route Stop Time Status Admin Acetaminophen 650 MG Q6P PRN 10/13 1715 AC PO Amlodipine Besylate 5 MG DAILY 10/15 0900 DC PO Amlodipine Besylate 5 MG DAILY 10/14 1545 AC 10/14 PO 1616 Atorvastatin Calcium 80 MG 1700 10/13 1700 AC 10/14 PO 1616 Chlorthalidone 12.5 MG DAILY 10/14 1418 DC PO Dextrose/Sodium 1,000 ML Q13H 10/13 2130 DC 10/13 Chloride IV 2210 Gabapentin 600 MG DAILY 10/14 0900 DC PO Gabapentin 600 MG 2100 10/13 2359 AC 10/14 PO 2024 Heparin Sodium 5,000 UNIT Q8 10/13 2200 AC 10/15 (Porcine) SC 0620 Levothyroxine Sodium 0.05 MG DAILY 10/14 0900 AC 10/14 PO 0739 Magnesium Oxide 400 MG ONE ONE 10/14 1600 DC 10/14 PO 10/14 1601 1616 Magnesium Sulfate 1 GM Q2H 10/14 1545 CAN Dextrose/Water 100 ML IV 10/15 1943 Magnesium Sulfate 1 GM ONCE ONE 10/14 1545 DC 10/14 Dextrose/Water 100 ML IV 10/14 1944 1543 Non-Formulary 0 SEE ADMIN CRITERIA 10/13 2145 UNV Medication ANY Patient Medication 1 ED ONE ONE 10/14 1630 DC 10/14 Teaching ED 10/14 1631 1629 Tramadol HCl 50 MG DAILY PRN 10/13 1700 AC PO Last 24 Hrs of Lab/Alverto Results Last 24 Hrs of Labs/Mics: Laboratory Tests 10/15/17611: Anion Gap 11, Estimated GFR 36 L, BUN/Creatinine Ratio 19.3 Microbiology 10/14 0938 STOOL: Clostridium difficile Toxin A & B - RECD Assessment/Plan Assessment: he patient is a 82-year-old female with past medical historyuterine cancer s/p hysterectomy, DVT s/p IVC not on AC, hypertension, hyperlipidemia and hypothyroidism. She presented to [facility] ED with complaint of generalized weakness and fatigue. She was sent in by her PCP Dr. Bundy for further evaluation The patient is being evaluated for following condition #Hyperkalemia-reolved The patient presented with EKG changes and complaint of fatigue and weakness she received calcium gluconate Novolin dextrose and Kayexalate in the ED. Her hyperkalemia was most likely secondary to dehydration leading to ARB added insult with use of ARB -Resolved -We are discontinuing the ARB/hctz and adding amlodipine to patient's regimen for better blood pressure control with history of hypertension -She has been evaluated by correctional sergeant Dr. Shepherd suggested outpatient follow-up #Hypomagnesemia Patient was repeated actively yesterday with IV mag -Monitor magnesium levels #Chronic diarrhea with acute exacerbation 7 episodes yesterday. No episode overnight. Mostly happen after consuming food. Afebrile without any white count. -Currently being worked up outpatient, patient and her family have been requesting GI evaluation. As per patient she was being worked up by Dr. Serra will give him a courtesy call. -C. difficile pendinG #GEORGETTE-resolved She has mild GEORGETTE in setting of dehydration with creatinine of 1.6. With her baseline being around 1.5, resolved with gentle IV hydration back to baseline at 1.5-1.4 #Non-anion gap metabolic acidosis resolved #Hx of hyperlipidemia, hypothyroidism Continue atorvastatin, levothyroxine #Regular diet/DVT prophylaxis with subcutaneous heparin/DNR/DNI Problem List: 1. Acute electrocardiogram changes Pain Ratin Pain Location: NA Pain Goal: Pain 4 or less Pain Plan: prn Tomorrow's Labs & Rationales: none Matt ABEBESofienatalie 10/15/17 1054: Attending MD Review Statement Attending Statement Attending MD Statement: examined this patient, discuss w/resident/PA/PUBLIC SERVICES LIBRARIAN, agreed w/resident/PA/PUBLIC SERVICES LIBRARIAN, reviewed EMR data (avail) Attending Assessment/Plan: 82F PMH HTN, HLD, anxiety, CKD stage 3a, spinal stenosis, hypothyroidism, DVT s/ p IVC not on AC, and uterine cancer s/p hysterectomy admitted with dehydration, weakness, hyperkalemia, and EKG changes. Patient had diarrhea and decreased PO intake in the two days prior to admission, became weak, saw her PCP, found to have elevated potassium 5.6. In ER had EKG with peaked T-waves in anterior leads. Given calcium gluconate, insulin, D50, IV fluids with improvement in potassium. Patient feels great today and wants to go home. She has no complaints. No telemetry events. 1. Hyperkalemia induced EKG changes 2. Dehydration 3. Acute on chronic (stage 3) kidney injury 4. Diarrhea of presumed infectious origin Plan - Stable for discharge - Discontinue ARB, would discontinue ARB/ACEi permanently given EKG changes and advise against restarting or starting any potassium sparing diuretics - Continue remaining home medications - Will follow PT recommendations for STR vs home with home PT
--- NOTE | 2017-10-15 12:01 | PN- Cardiology ---
Subjective Review of Systems: The patient seems to be doing better today. No specific complaints. Potassium 5.0. Tolerating amlodipine. Blood pressure stable though not optimally controlled. Objective Vital Signs and I&Os Vital Signs Date Time Temp Pulse Resp B/P B/P Pulse O2 O2 Flow FiO2 Mean Ox Delivery Rate 10/15 0859 84 132/70 10/15 0800 Room Air 10/15 0707 98.6 67 12 130/54 97 Room Air 10/14 2220 98.3 88 12 120/60 99 Room Air 10/14 1616 69 160/68 10/14 1400 98.2 69 20 160/68 98 Intake & Output 10/15 1600 10/15 0800 10/15 0000 10/14 1600 10/14 0800 10/14 0000 Intake Total 534 348 4814 Output Total Balance 657 890 5604 Intake, IV 723 092 9406 Intake, Oral 550 60 120 Number 5 Bowel Movements Patient 141 lb 138 lb Weight Weight Bed scale Bed scale Measurement Method Physical Exam: General Appearance: well developed/nourished, alert, awake, oriented Head: normal HEENT: Normal Neck: supple, JVP normal, carotid upstrokes normal bilaterally, no masses or thyromegaly Respiratory: chest non-tender, clear to auscultation and percussion bilaterally Cardiovascular: regular rate/rhythm, normal S1, S2, 1-2/6 systolic murmur Abdomen: normal bowel sounds, soft, non-tender Extremities: normal inspection, no edema Vascular: Pulses are 2+ and equal bilaterally Neurologic: Grossly normal/nonfocal Current Medications: Current Medications Sig/Mikaela Start time Last Medication Dose Route Stop Time Status Admin Acetaminophen 650 MG Q6P PRN 10/13 1715 AC PO Amlodipine Besylate 5 MG DAILY 10/15 0900 DC PO Amlodipine Besylate 5 MG DAILY 10/14 1545 AC 10/15 PO 0859 Atorvastatin Calcium 80 MG 1700 10/13 1700 AC 10/14 PO 1616 Chlorthalidone 12.5 MG DAILY 10/14 1418 DC PO Gabapentin 600 MG 2100 10/13 2359 AC 10/14 PO 2024 Heparin Sodium 5,000 UNIT Q8 10/13 2200 AC 10/15 (Porcine) SC 0620 Levothyroxine Sodium 0.05 MG DAILY 10/14 0900 AC 10/15 PO 0858 Magnesium Oxide 400 MG ONE ONE 10/14 1600 DC 10/14 PO 10/14 1601 1616 Magnesium Sulfate 1 GM Q2H 10/14 1545 CAN Dextrose/Water 100 ML IV 10/14 194 Magnesium Sulfate 1 GM ONCE ONE 10/14 1545 DC 10/14 Dextrose/Water 100 ML IV 10/14 1944 1543 Non-Formulary 0 SEE ADMIN CRITERIA 10/13 2145 UNV Medication ANY Patient Medication 1 ED ONE ONE 10/14 1630 DC 10/14 Teaching ED 10/14 1631 1629 Tramadol HCl 50 MG DAILY PRN 10/13 1700 AC PO Results Last 48 Hrs of Labs/Mics: Laboratory Tests 10/15/17 0612: Anion Gap 11, Estimated GFR 36 L, BUN/Creatinine Ratio 19.3, Magnesium 1.5 L 10/14/17 0631: Anion Gap 9, Estimated GFR 36 L, BUN/Creatinine Ratio 20.0, Magnesium 1.3 L, CBC w Diff NO MAN DIFF REQ, RBC 3.05 L, MCV 90.5, MCH 30.2, MCHC 33.4, RDW 12.9 , MPV 9.1, Gran % 50.5, Lymphocytes % 39.5, Monocytes % 8.6, Eosinophils % 1.2, Basophils % 0.2, Absolute Granulocytes 2.6, Absolute Lymphocytes 2.0, Absolute Monocytes 0.4, Absolute Eosinophils 0.1, Absolute Basophils 0 10/13/17 2305: Anion Gap 8, Estimated GFR 33 L, BUN/Creatinine Ratio 21.3, Magnesium 1.3 L 10/13/17 1349: Anion Gap 9, Estimated GFR 31 L, BUN/Creatinine Ratio 25.0, Glucose 84, Calcium 8.7, Magnesium 1.4 L, Total Bilirubin 0.7, AST 35, ALT 27, Alkaline Phosphatase 57, Troponin I < 0.01, Total Protein 6.3, Albumin 3.3 L, Globulin 3.0, Albumin/ Globulin Ratio 1.1 10/13/17 1300: Urine Color YEL, Urine Clarity CLEAR, Urine pH 6.0, Ur Specific [place] <= 1.005 , Urine Protein NEG, Urine Ketones NEG, Urine Nitrite NEG, Urine Bilirubin NEG, Urine Urobilinogen 0.2, Ur Leukocyte Esterase NEG, Ur Microscopic EXAM NOT REQUIRED, Urine Hemoglobin NEG, Urine Glucose NEG 10/13/17 1224: CBC w Diff NO MAN DIFF REQ, RBC 3.41 L, MCV 90.2, MCH 30.7, MCHC 34.0, RDW 12.4 , MPV 9.0, Gran % 55.9, Lymphocytes % 34.1, Monocytes % 8.0, Eosinophils % 1.4, Basophils % 0.6, Absolute Granulocytes 2.8, Absolute Lymphocytes 1.7, Absolute Monocytes 0.4, Absolute Eosinophils 0.1, Absolute Basophils 0 Assessment/Plan Assessment/Plan Assessment: 1. Acute renal insufficiency with hyperkalemia-improving 2. Abnormal EKG with hyperacute T waves-improving 3. History of hypertension 4. History of hyperlipidemia 5. Normocytic anemia 6. Hypomagnesemia Recommendations: -Repeat ECG pending -Continue amlodipine for blood pressure control. If necessary, increase to 7.5 mg daily -ARB and diuretic discontinued -Replete magnesium and check follow-up levels. -Close outpatient follow-up with repeat labs as outpatient. Continue telemetry? No
[2017-10-15 14:00] VITALS: BP 116/70
[2017-10-15] MEDS ORDERED: MAGNESIUM400 M1 PO (15:32)
[2017-10-15] MEDS ORDERED: AMLODIPINE BESYL5 M1 PO (15:32)
== END 2017-10-15 18:56 | disposition home health service (06) | DRG 641 ==
LOC: ERH 10:44 → 1NO 15:35 → ERHI 15:35 → ENRESERV 16:33 → ENTRNSPT 19:51 → EDTRNSPT 19:56 → EDTRNSPTSTS 19:56 → 1NO 20:04 → CMPTRNSPT 20:16 → ENPENDDIS 10-15 15:03 → ENTRNSPT 10-15 18:24 → 1NO 10-15 18:56 → CMPTRNSPT 10-15 19:08
PROVIDERS: Internal Medicine Interventional Cardiology; Nurse Practitioner; Physician Assistant
DX: E86.0 Dehydration (principal); E87.5 Hyperkalemia; N28.9 Disorder of kidney and ureter, unspecified; I12.9 Hypertensive chronic kidney disease with stage 1 through stage 4 chronic kidney disease, or unspecified chronic kidney disease; N18.3 Chronic kidney disease, stage 3 (moderate); E87.2 Acidosis; E78.5 Hyperlipidemia, unspecified; E03.9 Hypothyroidism, unspecified; K52.9 Noninfective gastroenteritis and colitis, unspecified; H26.9 Unspecified cataract; H91.90 Unspecified hearing loss, unspecified ear; F32.9 Major depressive disorder, single episode, unspecified; Z90.710 Acquired absence of both cervix and uterus; Z95.9 Presence of cardiac and vascular implant and graft, unspecified; F41.9 Anxiety disorder, unspecified; Z85.42 Personal history of malignant neoplasm of other parts of uterus; Z98.1 Arthrodesis status; E83.42 Hypomagnesemia; D64.9 Anemia, unspecified; R94.31 Abnormal electrocardiogram [ECG] [EKG]
CPT/HCPCS: 1NSP; 36592; 71045; 81003; 82436; 93005; 93010; 96374; 97116-GO; 97161-GP; J0610; J1644; J7042

== ENCOUNTER 2017-12-19 07:47 | Inpatient (IN) | payer OTHER, MEDICARE ==
[~2017-12-19] VITALS: Ht 167.6 cm; Wt 63.5 kg
[~2017-12-19 07:47] MED LIST changes: +AMLODIPINE BESYL5 M1 PO; +COLACE100 M1 PO; +EDARBYCLOR 40-1 EACH PO; +GABAPENTIN600 M1 PO; +MAGNESIUM CITR296 ML PO; +MAGNESIUM400 M1 PO; +METAMUCIL660 GM PO; +MINERAL OIL EN133 ML PR; +TRAMADOL HCL50 M1 PO; +TRINTELLIX5 MG PO
--- NOTE | 2017-12-19 11:09 | ED GENERAL ADULT ---
History of Present Illness General Chief Complaint: General Adult Stated Complaint: SENT BY MD FOR EVAL AND ? NEED FOR IV ANTIBIOTICS Source: patient, family Exam Limitations: no limitations Vital Signs & Intake/Output Vital Signs & Intake/Output Vital Signs Date Time Temp Pulse Resp B/P B/P Pulse O2 O2 Flow FiO2 Mean Ox Delivery Rate 12/19 1616 97.9 80 20 165/75 99 Room Air 12/19 1403 84 20 178/81 99 Room Air 12/19 1345 98.6 12/19 1230 Room Air Room Air 12/19 1203 98.0 83 20 162/96 98 Room Air 12/19 0752 99.5 98 18 153/66 95 Room Air Allergies Coded Allergies: No Known Allergies (02/12/16) Triage Note: SIB PMD FOR IV ANTIBIOTICS. HAD A PIECE OF METAL INTO LEFT INDEX DIP JOINT A MONTH AGO. HAS SWELLING, REDNESS AND WARMTH WITHOUT DRAINAGE. HAD XRAY WHICH DID NOT SHOW FOREIGN BODY. HAS BEEN TAKING AUGMENTIN WITHOUT IMPROVEMENT. TEMP 99.5 Triage Nurses Notes Reviewed? yes Onset: Gradual Duration: week(s): Timing: recent history Injury Environment: home Severity: moderate HPI: 82 y/o Female PMHx CKD stage II, HTN, HLD presenting with redness and swelling to left index finger x 1 week. Pt was washing dishes with a metal brillo pad when she believes a bristle broke off and punctured her finger. Pt believes she retained the foreign body, although has had x-rays that do not show foreign body reviewed by her hand specialist, Dr. Doll. Pt has gone through a course of keflex with no improvement. Pt just began augmentin 875 yesterday as a second course. Dr. Doll recommended she come to the ED for IV antibiotics if symptoms worsen and patient believes cellulitic area is worsening today. Pt admits to severe pain, warmth, erythema. Pt denies fevers, chills, loss of ROM, SOB, cp. (Noni TORREZ,Genia Wallis) Reconcile Medications Amlodipine Besylate 5 MG TABLET 5 MG PO DAILY HTN . Aspirin (Aspirin*) 81 MG TAB.CHEW 1 TAB PO QPM HEART HEALTH (Reported) Atorvastatin Calcium 80 MG TABLET 80 MG PO 1700 cholestrol Bupropion HCl (Bupropion XL) 150 MG TAB.ER.24H 1 TAB PO QAM ANXIETY (Reported ) Ferrous Sulfate 325 MG (65 MG IRON) TABLET 1 TAB PO SuWe IRON, VITAMIN ( Reported) Gabapentin 600 MG TABLET 1 CAP PO DAILY CRAMPS (Reported) Levothyroxine Sodium 50 MCG TABLET 1 TAB PO DAILY THYROID (Reported) Magnesium Oxide (Magnesium) 400 MG CAPSULE 1 CAP PO DAILY supplement Tramadol HCl 50 MG TABLET 1 TAB PO DAILY PRN PAIN (Reported) (Yuriy ABEBE,Vijay Modi) Past History Travel History Traveled to [place] past 21 day No Medical History Any Pertinent Medical History? 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 No (Genia Felton) Review of Systems Review of Systems Constitutional: Denies: see HPI. EENTM: Reports: no symptoms. Respiratory: Denies: see HPI. Cardiovascular: Denies: see HPI. GI: Reports: no symptoms. Genitourinary: Reports: no symptoms. Musculoskeletal: Reports: see HPI. Skin: Reports: see HPI. Neurological/Psychological: Reports: no symptoms. Hematologic/Endocrine: Reports: no symptoms. Immunologic/Allergic: Reports: no symptoms. All Other Systems: Reviewed and Negative (Genia Felton) Physical Exam Physical Exam General Appearance: well developed/nourished, no apparent distress, alert, awake Head: atraumatic, normal appearance Eyes: Bilateral: normal appearance. Ears, Nose, Throat: hearing grossly normal Neck: normal inspection, supple, full range of motion Respiratory: normal breath sounds, no respiratory distress, lungs clear Cardiovascular: regular rate/rhythm, NMRG Peripheral Pulses: 2+ radial (R), 2+ radial (L) Back: normal inspection, normal range of motion Extremities: Left index finger erythema distally extending to the PIP joint + swelling, tenderness, and warmth. Full ROM present with flexion and extension, abduction, adduction Neurologic/Psych: awake, alert, oriented x 3 Skin: erythema as mentioned above Core Measures ACS in differential dx? No CVA/TIA Diagnosis: No Sepsis Present: No Sepsis Focused Exam Completed? No (Noni TORREZ,Genia Wallis) Progress Differential Diagnoses I considered the following diagnoses in my evaluation of the patient: [ cellulitis, flexor tenosynovitis, abscess, sepsis, foreign body] Plan of Care: Orders Procedure Date/time Status CBC WITHOUT DIFFERENTIAL 12/20 06 Active BASIC ELECTROLYTES PLUS BUN&CR 12/20 06 Active Regular Diet 12/19 L Complete Heart Healthy Diet 12/19 D Active Weight 12/19 1839 Active Vital Signs 12/19 1839 Active Teach/Educate 12/19 183 Active Pain Treatment and Response 12/19 183 Active Nutritional Intake, Monitor 12/19 183 Active Isolation 12/19 183 Active Intake & Output 12/19 1839 Active Patient Care Conference 12/19 1839 Active Activity/Ambulation 12/19 1839 Active Patient Data 12/19 1518 Active Pathway - chart 12/19 1442 Active House Staff 12/19 1442 Active ED Holding Orders 12/19 1435 Active Admit to inpatient 12/19 1435 Active Vital Signs 12/19 1435 Active Code Status 12/19 1435 Active LACTIC ACID 12/19 1205 Complete EKG 12/19 1125 Active BLOOD CULTURE 12/19 0905 Active TROPONIN LEVEL 12/19 0905 Complete LACTIC ACID 12/19 0905 Complete COMPREHENSIVE METABOLIC PANEL 12/19 0905 Complete CBC WITHOUT DIFFERENTIAL 12/19 0905 Complete Intake & Output 12/19 0753 Active VTE Mechanical Prophylaxis 12/19 UNK Active Current Medications Sig/Mikaela Start time Last Medication Dose Stop Time Status Admin Amlodipine Besylate 5 MG DAILY 12/20 09 AC (Norvasc) Bupropion HCl 150 MG QAM 12/20 09 AC (Wellbutrin XL) Gabapentin 600 MG DAILY 12/20 09 AC (Neurontin) Levothyroxine Sodium 0.05 MG DAILY AC 12/20 0700 AC (Synthroid) Heparin Sodium 5,000 UNIT Q8 12/19 2200 AC (Porcine) Aspirin 81 MG QPM 12/19 2100 AC (Aspirin) Ampicillin Sodium/ 3,000 MG Q6 12/19 1800 AC Sulbactam Sodium (Unasyn) Sodium Chloride 100 ML (Normal Saline 0.9%) Atorvastatin Calcium 80 MG 1700 12/19 1700 AC (Lipitor) Non-Formulary 0 SEE ADMIN CRITERIA 12/19 1600 CAN Medication (NON FORMULARY) Acetaminophen 650 MG Q6P PRN 12/19 1445 AC (Tylenol) Laboratory Tests 12/19/17 1447: Lactic Acid 1.2 12/19/17 1440: Sodium Cancelled, Potassium Cancelled, Chloride Cancelled, Carbon Dioxide Cancelled, Anion Gap Cancelled, BUN Cancelled, Creatinine Cancelled, BUN/ Creatinine Ratio Cancelled, CBC w Diff Cancelled, WBC Cancelled, RBC Cancelled, Hgb Cancelled, Hct Cancelled, MCV Cancelled, MCH Cancelled, MCHC Cancelled, RDW Cancelled, Plt Count Cancelled, MPV Cancelled 12/19/17 1135: Anion Gap 9, Estimated GFR 43 L, BUN/Creatinine Ratio 13.3, Glucose 116 H, Lactic Acid 1.1, Calcium 9.3, Total Bilirubin 1.0, AST 31, ALT 22, Alkaline Phosphatase 75, Troponin I < 0.01, Total Protein 7.4, Albumin 4.1, Globulin 3.3, Albumin/Globulin Ratio 1.2, CBC w Diff NO MAN DIFF REQ, RBC 3.64 L, MCV 92.2, MCH 30.7, MCHC 33.3, RDW 13.2, MPV 8.3, Gran % 86.4 H, Lymphocytes % 6.8 L, Monocytes % 6.0, Eosinophils % 0.7, Basophils % 0.1, Absolute Granulocytes 4.0, Absolute Lymphocytes 0.3 L, Absolute Monocytes 0.3, Absolute Eosinophils 0, Absolute Basophils 0 Microbiology 12/19 1200 BLOOD: Blood Culture - RECD 12/19 1135 BLOOD: Blood Culture - RECD xray from 12/15 reviewed, no foreign body detected. Spoke with Dr. Doll regarding his patient - he states that she has been on antibiotics on her cellulitis has been worsening. He recommends either admission for IV antibiotics or one-time dose of IV antibiotics and discharged with oral antibiotics and close follow-up tomorrow in the emergency department and with him on Friday. He believes either option is reasonable based on his findings at the office when he met with this patient. Patient has cellulitis of the index finger, based on physical exam findings are not consistent with tenosynovitis at this time however given location of cellulitis this is a risk. She has failed outpatient antibiotics and requires IV antibiotics to reduce her cellulitis. This is an elderly patient with risk for tenosynovitis if infection is not treated appropriately. Will admit for IV antibiotics, slow fluid rehydration, repeat labs, follow up with blood cultures. Spoke with Dr. Gutierrez regarding general medicine admission. Initial ED EKG: SINUS rhythm @69bpm, PAC, RBBB, nonspecific ST changes Prior EKG: unchanged (10/14/17) (Genia Felton) Departure Departure Disposition: STILL A PATIENT Condition: Stable Clinical Impression Primary Impression: Cellulitis Qualifiers: Site of cellulitis: extremity Site of cellulitis of extremity: finger Laterality: left Qualified Code: L03.012 - Cellulitis of left finger Referrals: Heron Chu MD (PCP/Family) Departure Forms: Customer Survey General Discharge Information Admission Note Spoke With: Katiana Gutierrez MD Documentation of Exam: Documentation of any treatments & extenuating circumstances including Concerns Regarding Discharge (functional status, medication knowledge or non-compliance, living conditions, etc.) that warrant an admission rather than observation: [ Left index finger cellulitis failed outpatient antibiotic therapy, at risk for development of tenosynovitis without appropriate antibiotic treatment, requires IV antibiotics, repeat labs, follow up with blood cultures, slow IV fluid rehydration, premature discharge medically unsafe] (Genia Fleton) PA/TRADITIONAL CHINESE HERBALIST Co-Sign Statement Statement: ED Attending supervision documentation- [X] I saw and evaluated the patient. I have also reviewed all the pertinent lab results and diagnostic results. I agree with the findings and the plan of care as documented in the PA's/TRADITIONAL CHINESE HERBALIST's documentation. [X] I have reviewed the ED Record and agree with the PA's/TRADITIONAL CHINESE HERBALIST's documentation. [] Additions or exceptions (if any) to the PAs/TRADITIONAL CHINESE HERBALIST's note and plan are summarized below: [FAILED OUTPATIENT ABX, NEEDS IV ABX,HANDCONSULT] (Yuriy ABEBE,Vijay Modi) Critical Care Note Critical Care Note Critical Care Time: non-applicable (Genia Felton)
[2017-12-19] MEDS ORDERED: AMOX-CLAV 875-1 EACH PO (11:20)
[2017-12-19] MEDS ORDERED: BUPROPION XL150 MG PO (11:21)
[2017-12-19] MEDS ORDERED: ASPIRIN81 M4 PO (11:23)
[2017-12-19] MEDS ORDERED: FERROUS SULFAT325 M3 PO (11:23)
[2017-12-19 11:46] LABS: ABSOLUTE BASOPHIL COUNT 0 /CUMM (0.0-0.2); ABSOLUTE EOSINOPHIL COUNT 0 /CUMM (0.0-0.7); ABSOLUTE LYMPH COUNT 0.3 /CUMM (1.2-3.4); ABSOLUTE MONOCYTE COUNT 0.3 /CUMM (0.10-0.60); BASOPHIL % 0.1 % (0.0-2.0); EOSINOPHIL % 0.7 % (0-5); HEMATOCRIT 33.5 % (37-47); MEAN CORPUSCULAR HGB 30.7 PG (27.0-31.0); MEAN CORPUSCULAR HGB CONC 33.3 G/DL (33.0-37.0); MEAN CORPUSCULAR VOLUME 92.2 FL (81.0-99.0); MEAN PLATELET VOLUME 8.3 FL (7.4-10.4); PLATELET COUNT 249 /CUMM (130-400); RBC DISTRIBUTION WIDTH 13.2 % (11.5-14.5); RED BLOOD CELL CT 3.64 /CUMM (4.20-5.40); WHITE BLOOD CELL COUNT 4.6 /CUMM (4.8-10.8)
[2017-12-19 12:18] LABS: GRANULOCYTE % 86.4 % (42.2-75.2)
--- NOTE | 2017-12-19 14:07 | History & Physical ---
WilliamDeepak 12/19/17 1406: General Information and HPI MD Statement: I have seen and personally examined SHANELL ARMSTRONG and documented this H&P. The patient is a 82 year old F who presented with a patient stated chief complaint of [left index finger swelling,redness]. 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), uterine cancer(status post hysterectomy) presented emergency department with a complaint of progressive swelling and redness of the left index finger since 1 month, according to the patient she was in her baseline 1 month before when she was washing dishes dishes scrubber puncture her left finger index finger palmar surface 1 month ago, she visited hand surgeon, he advise x-ray to rule out foreign body but there was no foreign body.Patient still had pain and redness, since last 1 week her pain and redness as well as swelling aggravated, she took some antibiotic she do not remember its name but that antibiotic does not work. Yesterday she started taking Augmentin but no improvement. She denies fever, chills, chest pain, palpitation, abdominal pain, diarrhea, constipation, burning micturition. At the time of presentation to emergency department her labs were significant for derange renal function test the creatinine: 1.2, GFR 43, bun: Creatinine= 13.3 In her hemoglobin: 11.2, Her vitals: BP= 178/81, SaO2= 99%, RR: 20, NJ: 80, temperature: 98.4. 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 self Services at Home: None Primary Language: Romansh Living Will? yes Functional Ability ADLs Independent: dressing, eating, toileting, bathing. Ambulation: independent IADLs Independent: shopping, housework, finances, food prep, telephone, transportation , medication admin. Review of Systems Review of Systems Constitutional: Reports: see HPI. Exam & Diagnostic Data Last 24 Hrs of Vital Signs/I&O Vital Signs Date Time Temp Pulse Resp B/P B/P Pulse O2 O2 Flow FiO2 Mean Ox Delivery Rate 12/19 2238 99.4 78 20 150/60 97 Room Air 12/19 1830 98.4 80 20 140/72 97 Room Air 12/19 1616 97.9 80 20 165/75 99 Room Air 12/19 1403 84 20 178/81 99 Room Air 12/19 1345 98.6 12/19 1230 Room Air Room Air 12/19 1203 98.0 83 20 162/96 98 Room Air 12/19 0752 99.5 98 18 153/66 95 Room Air Intake & Output 12/19 1600 12/19 0800 12/19 0000 Intake Total Output Total Balance Patient 140 lb 140 lb Weight Weight Reported by Patient Measurement Method Physical Exam General Appearance Alert, Oriented X3, Cooperative, No Acute Distress Assessment/Plan Assessment: 82-year-old female with past medical history hypertension, hyperlipidemia, hypothyroidism(on levothyroxine), CKD stage III, anxiety, depression, spinal stenosis(status post surgery in 2012), 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 Problems list: *Left index finger cellulitis *Failure of antibiotic treatment Plan: Left index finger cellulitis: The patient clinical signs symptoms is more consistent with cellulitis of the left index finger. The predisposing factor or cellulitis in this patient as his comorbidities and finger puncture by steel particle. This patient having no leukocytosis, systemic symptoms like fever, hypotension. Patient can be discharged tomorrow and can be followed on outpatient basis. Started getting worse her hands doctor will be informed. *Admit to general medical floor *IV access *Injection Unasyn 3 g every 6 hours *Follow blood culture *Continue home medication *DNR/DNI *Advance healthy diet *GI/DVT prophylaxsis As Ranked By This Provider Problem List: 1. Cellulitis Qualifiers Site of cellulitis: extremity Site of cellulitis of extremity: finger Laterality: left Qualified Code: L03.012 - Cellulitis of left finger 2. CKD (chronic kidney disease) stage 3, GFR 30-59 ml/min 3. HTN (hypertension) 4. Hyperlipidemia Core Measures/Misc (01/19) Acute Coronary Syndrome ACS Diagnosis: No Congestive Heart Failure Congestive Heart Failure Diagnosis No Cerebrovascular Accident CVA/TIA Diagnosis: No VTE (View Protocol) VTE Risk Factors Age>40 No Mechanical VTE Prophylaxis d/t Other No VTE Pharm Prophylaxis d/t Other Sepsis (View protocol) Sepsis Present: No If YES complete Sepsis Event Note If YES complete Sepsis Event Note [facility] 12[facility]17 1642: General Information and HPI Allergies/Medications Home Med list Amlodipine Besylate 5 MG TABLET 5 MG PO DAILY HTN . Aspirin (Aspirin*) 81 MG TAB.CHEW 1 TAB PO QPM HEART HEALTH (Reported) Atorvastatin Calcium 80 MG TABLET 80 MG PO 1700 cholestrol Bupropion HCl (Bupropion XL) 150 MG TAB.ER.24H 1 TAB PO QAM ANXIETY (Reported ) Ferrous Sulfate 325 MG (65 MG IRON) TABLET 1 TAB PO SuWe IRON, VITAMIN ( Reported) Gabapentin 600 MG TABLET 1 CAP PO DAILY CRAMPS (Reported) Levothyroxine Sodium 50 MCG TABLET 1 TAB PO DAILY THYROID (Reported) Magnesium Oxide (Magnesium) 400 MG CAPSULE 1 CAP PO DAILY supplement Tramadol HCl 50 MG TABLET 1 TAB PO DAILY PRN PAIN (Reported) Core Measures/Misc (01/19) Sepsis (View protocol) If YES complete Sepsis Event Note If YES complete Sepsis Event Note Attending MD Review Statement Attending Statement Attending MD Statement: examined this patient, discuss w/resident/PA/MAINTENANCE DATA ANALYST, agreed w/resident/PA/MAINTENANCE DATA ANALYST, reviewed EMR data (avail) Attending Assessment/Plan: 82F PMH hypertension, hyperlipidemia, anxiety, depression, CKD, spinal stenosis, hypothyroidism, DVT s/p IVC not on AC, and uterine cancer s/p hysterectomy presenting with erythema and swelling of the left index finger for 1 week. Symptoms started gradually and have progressed, given first Cephalex (taken for 7 days) and then Augmentin (for 1 day) by Dr. Doll with worsening of the erythema, which is present from the fingertip extending beyond the DIP but not into hand. ROM limited by swelling, mildly tender, no history of trauma, denies any systemic symptoms. 1. Left index finger cellulitis 2. Failure of outpatient therapy Plan - Admit to general medicine - Start Unasyn - Hand elevation - Tylenol for pain - Continue home medications - If no improvement will be seen by Dr. Doll on Friday - DVT PPx Ephraim ABEBE,Giovanni 12/19/17 1744: Core Measures/Misc (01/19) Sepsis (View protocol) If YES complete Sepsis Event Note If YES complete Sepsis Event Note Resident Review Statement Resident Statement: examined this patient, discussed with engineering intern Other Findings: 82 y/o Female PMHx CKD stage II, HTN, HLD presenting with redness and swelling to left index finger x 1 week. Pt was washing dishes with a metal brillo pad when she believes a bristle broke off and punctured her finger. Pt believes she retained the foreign body, although has had x-rays that do not show foreign body reviewed by her hand specialist, Dr. Doll. Pt has gone through a course of keflex with no improvement. Pt just began augmentin 875 yesterday as a second course. Pt denies fevers, chills, loss of ROM, SOB, cp. Impression Cellulitis of left index finger, failed outpatient abx regimen of cephalexin. History of chronic diseases: CKD stage II, HTN, HLD Plan Admit to gen med Unasyn 3gm q6h f/u blood cultures Trend CBC in am Continue home meds
--- NOTE | 2017-12-19 16:42 | Admission Certification ---
Admission Certification Certification Statement - As attending physician, I certify that at the time of - admission, based on clinical presentation, severity of - symptoms, need for further diagnostic testing and - therapeutic interventions, and risk of adverse outcomes - without in-hospital treatment, in my clinical assessment, - this patient requires an acute hospital stay for a minimum - of two nights or longer. I have also considered psychsocial - factors such as support system, advanced age, financial - issues, cognitive issues, and failed out-patient treatments, - past re-admission history, safety of patient, and lack of - compliance as applicable. Specific rationale supporting this admission is: Spreading cellulitis of left index finger failing outpatient therapy
[2017-12-19 18:30] VITALS: BP 140/72
[2017-12-19 22:38] VITALS: BP 150/60
--- NOTE | 2017-12-20 03:33 | PN- Housestaff ---
See Addendum Subjective Follow-up For: osteomyelitis of left index finger Subjective: Patient seen and examined at bedside. He has no acute complaints. There is no overnight event. Patient denies chest pain, palpitation, fevers, chills, abdominal pains, diarrhea, constipation, burning micturition. Review of Systems Constitutional: Reports: see HPI. Objective Last 24 Hrs of Vital Signs/I&O Vital Signs Date Time Temp Pulse Resp B/P B/P Pulse O2 O2 Flow FiO2 Mean Ox Delivery Rate 12/19 2238 99.4 78 20 150/60 97 Room Air 12/19 1830 98.4 80 20 140/72 97 Room Air 12/19 1616 97.9 80 20 165/75 99 Room Air 12/19 1403 84 20 178/81 99 Room Air 12/19 1345 98.6 12/19 1230 Room Air Room Air 12/19 1203 98.0 83 20 162/96 98 Room Air 12/19 0752 99.5 98 18 153/66 95 Room Air Intake & Output 12/20 0800 12/20 0000 12/19 1600 Intake Total 200 Output Total Balance 200 Intake, IV 100 Intake, Oral 100 Patient 140 lb 140 lb Weight Weight Reported by Patient Measurement Method Physical Exam General Appearance: Alert, Oriented X3, Cooperative, No Acute Distress Assessment/Plan Assessment: Assessment/Plan: 82-year-old female with past medical history hypertension, hyperlipidemia, hypothyroidism(on levothyroxine), CKD stage III, anxiety, depression, spinal stenosis(status post surgery in 2012), 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 problems list: *cellulitis of left index finger *Failure of antibiotic treatment *Left index finger cellulitis: The patient clinical signs symptoms is more consistent with cellulitis of the left index finger. The predisposing factor or cellulitis in this patient as his comorbidities and finger puncture by steel particle. This patient having no leukocytosis, systemic symptoms like fever, hypotension. Patient can be discharged tomorrow and can be followed on outpatient basis. Started getting worse her hands doctor will be informed. *Failure of antibiotic treatment: As patient took keflex on out patient basis,but it doesnot work, so he need to be admitted to hospital for IV antibiotic and also the loaction of cellulitis is on hands where chances of spreading infection is very high so ve have to change the antibiotic and admit the patinet. *Admit to general medical floor *IV access *Injection Unasyn 3 g every 6 hours *Follow blood culture *Continue home medication *DNR/DNI *Advance healthy diet *GI/DVT prophylaxsis Problem List: 1. Cellulitis Pain Ratin Pain Location: no pain Pain Goal: Remain pain free Pain Plan: n/a Tomorrow's Labs & Rationales: cbc
[2017-12-20 05:31] VITALS: BP 120/60
[2017-12-20 10:11] LABS: ABSOLUTE BASOPHIL COUNT 0 /CUMM (0.0-0.2); ABSOLUTE EOSINOPHIL COUNT 0.1 /CUMM (0.0-0.7); ABSOLUTE LYMPH COUNT 0.6 /CUMM (1.2-3.4); ABSOLUTE MONOCYTE COUNT 0.6 /CUMM (0.10-0.60)
[2017-12-20 11:17] LABS: ABSOLUTE GRANULOCYTE CT 2.6 /CUMM (1.4-6.5); BASOPHIL % 0.6 % (0.0-2.0); EOSINOPHIL % 1.9 % (0-5); GRANULOCYTE % 67.6 % (42.2-75.2); MEAN CORPUSCULAR HGB 30.9 PG (27.0-31.0); MEAN CORPUSCULAR HGB CONC 33.6 G/DL (33.0-37.0); MEAN CORPUSCULAR VOLUME 91.8 FL (81.0-99.0); MEAN PLATELET VOLUME 8.9 FL (7.4-10.4); RBC DISTRIBUTION WIDTH 13.1 % (11.5-14.5); RED BLOOD CELL CT 2.93 /CUMM (4.20-5.40)
[2017-12-20 11:21] LABS: HEMATOCRIT 26.9 % (37-47)
[2017-12-20 11:43] LABS: PLATELET COUNT 184 /CUMM (130-400)
[2017-12-20 13:36] VITALS: BP 138/80
[2017-12-20 21:57] VITALS: BP 140/64
[2017-12-21 06:43] VITALS: BP 120/50
--- NOTE | 2017-12-21 08:23 | PN- Housestaff ---
PedroCeci holmani 12/21/17 0823: Subjective Follow-up For: Left index finger cellulitis Subjective: Patient was seen and examined at bedside. She reports a worsening in the swelling and pain in her finger. She states that her finger was slightly pink as opposed to an angry red today. The range of motion on her finger is limited. She denies fever, chills, nausea, vomiting, palpitations. In view of her worsening cellulitis, a transfer to [facility] was considered. However, was kind enough to stop by and make recommendations. Review of Systems Constitutional: Reports: see HPI. Objective Last 24 Hrs of Vital Signs/I&O Vital Signs Date Time Temp Pulse Resp B/P B/P Pulse O2 O2 Flow FiO2 Mean Ox Delivery Rate 12/21 0910 96 140/60 12/21 0643 99.3 77 20 120/50 98 Room Air 12/20 2214 99.9 12/20 2157 101.3 89 20 140/64 96 12/20 2152 99.9 12/20 2053 101.3 Intake & Output 12/21 1600 12/21 0800 12/21 0000 Intake Total 170 400 Output Total Balance 170 400 Intake, IV 120 100 Intake, Oral 50 300 Number 0 Bowel Movements Physical Exam General Appearance: Alert, Oriented X3, Cooperative, No Acute Distress Skin: No Rashes Cardiovascular: Regular Rate, Normal S1, Normal S2 Lungs: Clear to Auscultation Abdomen: Normal Bowel Sounds, Soft, No Tenderness Extremities: swelling and erythema in the dorsal aspect of left index finger with a developing abscess. range of motion at the first interphalyngeal joint limited Assessment/Plan Assessment: 82 y/o Female PMHx CKD stage II, HTN, HLD presenting with redness and swelling to left index finger x 1 week. Pt was washing dishes with a metal brillo pad when she believes a bristle broke off and punctured her finger. Pt believes she retained the foreign body, although has had x-rays that do not show foreign body reviewed by her hand specialist, Dr. Doll. Pt has gone through a course of keflex with no improvement She is currently on Unasyn Day 3. There is a definite worsening in the swelling and erythema of her finger. ROM was preserved at addmssion. She is not able to move her finger at the 1st interphalyngeal joint at this time. I talked to who had been following her outpatient. He would be stopping by later. Would follow up on his recommendations. -Continue iv Unasyn for now -X-ray Left index finger 3 views -Continue to monitor for worsening We are holding off on the transfer to [facility] for now. DVT prophylaxis Fullc code Problem List: 1. 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 Symptoms started gradually and have progressed, given first Cephalex (taken for 7 days) and then Augmentin (for 1 day) by Dr. Doll with worsening of the erythema, which is present from the fingertip extending beyond the DIP but not into hand. ROM limited by swelling, mildly tender, no history of trauma, denies any systemic symptoms. Erythema and swelling worsening, appears to have underlying abscess, no systemic symptoms, afebrile, cultures negative. 1. Left index finger cellulitis 2. Failure of outpatient therapy Plan - Continue on general medicine - Continue Unasyn - Urgent plastics consult, if cannot be seen today, transfer to [facility] - Hand elevation - Tylenol for pain - Continue home medications - DVT PPx
[2017-12-21 09:28] LABS: ABSOLUTE BASOPHIL COUNT 0 /CUMM (0.0-0.2); ABSOLUTE EOSINOPHIL COUNT 0.1 /CUMM (0.0-0.7); ABSOLUTE GRANULOCYTE CT 2.7 /CUMM (1.4-6.5); ABSOLUTE LYMPH COUNT 0.5 /CUMM (1.2-3.4); ABSOLUTE MONOCYTE COUNT 0.4 /CUMM (0.10-0.60); BASOPHIL % 0.5 % (0.0-2.0); EOSINOPHIL % 1.8 % (0-5); GRANULOCYTE % 72.6 % (42.2-75.2); HEMATOCRIT 28.4 % (37-47); MEAN CORPUSCULAR HGB 30.9 PG (27.0-31.0); MEAN CORPUSCULAR HGB CONC 33.9 G/DL (33.0-37.0); MEAN CORPUSCULAR VOLUME 91.1 FL (81.0-99.0); MEAN PLATELET VOLUME 8.6 FL (7.4-10.4); PLATELET COUNT 202 /CUMM (130-400); RBC DISTRIBUTION WIDTH 12.9 % (11.5-14.5); RED BLOOD CELL CT 3.11 /CUMM (4.20-5.40); WHITE BLOOD CELL COUNT 3.7 /CUMM (4.8-10.8)
[2017-12-21 14:29] VITALS: BP 158/60
--- NOTE | 2017-12-21 14:52 | RADIOLOGY REPORT ---
EXAMINATION: 3 views of the left second digit CLINICAL INFORMATION: Swelling COMPARISON: Left digit radiographs 12/15/2017. FINDINGS: There is diffuse soft tissue swelling involving the left second digit that is slightly increased in comparison to the prior exam. A punctate radiodensity dorsal to the distal second interphalangeal joint is not appreciated on the prior study and may reflect a small focus of calcification or a small radiopaque foreign body. There are no fractures. Mild joint space narrowing of the interphalangeal joints of all digits compatible with mild osteoarthritis. There is osteoarthritis involving the first carpometacarpal joint. IMPRESSION: There is diffuse soft tissue swelling involving the left second digit that is slightly increased in comparison to the prior exam. A punctate radiodensity dorsal to the distal second interphalangeal joint is not appreciated on the prior study and may reflect a small focus of calcification or a small radiopaque foreign body. No fractures. Mild osteoarthritis.
--- NOTE | 2017-12-21 17:20 | Cons- Plastic Surgery ---
General Information and HPI Consulting Request Date of Consult: 12/21/17 Requested By: Katiana Gutierrez MD Reason for Consult: Cellulitis left nondominant index finger Source of Information: patient (md) History of Present Illness: Seen this past Friday with a change in oral antibiotics from Keflex to Augmentin. Patient presents after 12 hours on Augmentin without significant improvement. Was admitted for intravenous antibiotics with a consult requested. Resident reports a T-max of 101 yesterday. Normal white count x-rays thus far negative Allergies/Medications Allergies: Coded Allergies: No Known Allergies (02/12/16) Home Med List: Amlodipine Besylate 5 MG TABLET 5 MG PO DAILY HTN . Aspirin (Aspirin*) 81 MG TAB.CHEW 1 TAB PO QPM HEART HEALTH (Reported) Atorvastatin Calcium 80 MG TABLET 80 MG PO 1700 cholestrol Bupropion HCl (Bupropion XL) 150 MG TAB.ER.24H 1 TAB PO QAM ANXIETY (Reported ) Ferrous Sulfate 325 MG (65 MG IRON) TABLET 1 TAB PO SuWe IRON, VITAMIN ( Reported) Gabapentin 600 MG TABLET 1 CAP PO DAILY CRAMPS (Reported) Levothyroxine Sodium 50 MCG TABLET 1 TAB PO DAILY THYROID (Reported) Magnesium Oxide (Magnesium) 400 MG CAPSULE 1 CAP PO DAILY supplement Tramadol HCl 50 MG TABLET 1 TAB PO DAILY PRN PAIN (Reported) Past History Medical History Neurological: TIA EENT: cataracts, hearing loss Cardiovascular: hypertension, hyperlipidemia, CAROTID ARTERY SURGERY- R SIDE IN 2015 Respiratory: NONE 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 self Services at Home: None Primary Language: French Smoking Status: Former Smoker Living Will? yes Functional Ability ADLs Independent: dressing, eating, toileting, bathing. Ambulation: independent IADLs Independent: shopping, housework, finances, food prep, telephone, transportation , medication admin. Review of Systems Review of Systems: all other systems neg Exam & Diagnostic Data Vital Signs and I&O Vital Signs Date Time Temp Pulse Resp B/P B/P Pulse O2 O2 Flow FiO2 Mean Ox Delivery Rate 12/21 1429 99.0 79 18 158/60 99 Room Air 12/21 0910 96 140/60 12/21 0643 99.3 77 20 120/50 98 Room Air 12/20 2214 99.9 12/20 2157 101.3 89 20 140/64 96 12/20 2152 99.9 12/20 2053 101.3 Intake & Output 12/21 1600 12/21 0800 12/21 0000 12/20 1600 12/20 0800 12/20 0000 Intake Total 907 095 5477 510 200 Output Total 300 Balance 256 073 2567 210 200 Intake, IV 120 100 300 150 100 Intake, Oral 50 300 720 360 100 Number 0 1 Bowel Movements Output, Urine 300 Patient 140 lb Weight Physical Exam: Left nondominant index finger with improving erythema volar aspect compared to this past Friday. Some small pointing of the dorsal region DIP no fluctuance no lymphangitis. I&D performed after digital block. No purulence identified. Continue same, add elevation with a Ramin pillow (yellow foam), wash hands daily soap and water, remove current dressing tomorrow and replace daily with Band-Aid as needed. Assessment/Plan Assessment/Plan Cellulitis nondominant index finger no purulence negative x-rays, Consult Acknowledgment - Thank you for your consult request.
[2017-12-21 22:09] VITALS: BP 142/60
[2017-12-22 06:20] VITALS: BP 122/50
--- NOTE | 2017-12-22 07:44 | PN- Housestaff ---
Deepak Thomas 12/22/17 0742: Subjective Follow-up For: Left index finger cellulitis Subjective: Patient seen and examined bedside. She she had temperature today. She had a bowel movement. She had breakfast She denies chills, chest pain, palpitation, abdominal pain, diarrhea, loose motion, burning micturition. Review of Systems Constitutional: Reports: see HPI. Objective Last 24 Hrs of Vital Signs/I&O Vital Signs Date Time Temp Pulse Resp B/P B/P Pulse O2 O2 Flow FiO2 Mean Ox Delivery Rate 12/22 1402 98.5 85 20 132/90 100 Room Air 12/22 0917 98.2 12/22 0818 100.6 12/22 0817 80 122/50 12/22 0620 100.6 80 20 122/50 92 Room Air 12/21 2209 99.7 79 18 142/60 95 Room Air Intake & Output 12/22 1600 12/22 0800 12/22 0000 Intake Total 320 170 600 Output Total 200 Balance 120 170 600 Intake, IV 20 120 200 Intake, Oral 300 50 400 Number 1 0 Bowel Movements Output, Urine 200 Physical Exam General Appearance: Alert, Oriented X3, Cooperative, No Acute Distress Assessment/Plan Assessment: 82-year-old female with past medical history hypertension, hyperlipidemia, hypothyroidism(on levothyroxine), CKD stage III, anxiety, depression, spinal stenosis(status post surgery in 2012), 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 problems list: *cellulitis of left index finger *Failure of antibiotic treatment *Left index finger cellulitis: The patient clinical signs symptoms is more consistent with cellulitis of the left index finger. The predisposing factor or cellulitis in this patient as his comorbidities and finger puncture by steel particle. This patient having no leukocytosis, systemic symptoms like fever, hypotension. She had one episode of hyperthermia her temperature was 100.6 Fahrenheit. She will be followed for 24 hours and will be discharged tomorrow on oral antibiotic if she remained afebrile. *Failure of antibiotic treatment: As patient took keflex on out patient basis,but it doesnot work, so he need to be admitted to hospital for IV antibiotic and also the loaction of cellulitis is on hands where chances of spreading infection is very high so ve have to change the antibiotic and admit the patinet. *Injection Unasyn 3 g every 6 hours *Blood cultures negative *Continue home medication *DNR/DNI *Advance healthy diet *GI/DVT prophylaxsis *Anticipated discharge tomorrow. Problem List: 1. HTN (hypertension) 2. Hyperlipidemia 3. Cellulitis Pain Ratin Pain Location: No pain Pain Goal: Remain pain free Pain Plan: Pain management pathway Tomorrow's Labs & Rationales: No labs Maria Luz Bey 12/22/17 1214: Attending MD Review Statement Attending Statement Attending MD Statement: examined this patient, discuss w/resident/PA/CATTLE DEHORNER, agreed w/resident/PA/CATTLE DEHORNER, discussed with family, reviewed EMR data (avail), discussed with nursing, discussed with case mgmt, reviewed images, amended to note Attending Assessment/Plan: 82F PMH hypertension, hyperlipidemia, anxiety, depression, CKD, spinal stenosis, hypothyroidism, 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 Pateint with temp of 100.6 this am. 1. Left index finger cellulitis s/p Incision and drainage no doug pus. 2. Failure of outpatient therapy Plan - Continue on general medicine - Continue Unasyn, plastics f/u, monitor for fever - Hand elevation - Tylenol for pain - Continue home medications - DVT PPx - anticipate discharge planning if no fever x 24 hrs
--- NOTE | 2017-12-22 13:11 | PN- Plastic Surgery ---
Subjective Subjective: Patient states range of motion better less discomfort. Objective Vital Signs and I&Os Vital Signs Date Time Temp Pulse Resp B/P B/P Pulse O2 O2 Flow FiO2 Mean Ox Delivery Rate 12/22 09 98.2 12/22 0818 100.6 12/22 0817 80 122/50 12/22 0620 100.6 80 20 122/50 92 Room Air 12/21 2209 99.7 79 18 142/60 95 Room Air 12/21 1429 99.0 79 18 158/60 99 Room Air Intake & Output 12/22 1600 12/22 0800 12/22 0000 12/21 1600 12/21 0800 12/21 0000 Intake Total 170 600 870 170 400 Output Total Balance 170 600 870 170 400 Intake, IV 120 200 150 120 100 Intake, Oral 50 400 720 50 300 Number 0 1 0 Bowel Movements Physical Exam: Decreased erythema index finger status post I&D with negative return of purulence. Assessment/Plan Assessment/Plan Unsure etiology- negative x-ray, improving with elevation and abx. Cont short course oral abx. Cont elevation with yellow pillow x 3 days, soap and water prn, f/u office next week no bandages. Unlikely cause of temp elevations.
[2017-12-22 14:02] VITALS: BP 132/90
[2017-12-22 22:21] VITALS: BP 150/58
[2017-12-23 06:55] VITALS: BP 140/66
--- NOTE | 2017-12-23 07:05 | PN- Housestaff ---
Deepak Thomas 12/23/17 0658: Subjective Follow-up For: Leftindex finger cellulitis Subjective: Patient seen and examined at bedside. She is sedated in her bed. She said she had no fever last night. She had a bowel movement. She done her breakfast. She said her left index finger swelling and redness subsided and I want to go home today. She denies fever, chills, chest pain, palpitation, abdominal pain, diarrhea, constipation, burning micturition. Review of Systems Constitutional: Reports: see HPI. Objective Last 24 Hrs of Vital Signs/I&O Vital Signs Date Time Temp Pulse Resp B/P B/P Pulse O2 O2 Flow FiO2 Mean Ox Delivery Rate 12/23 0655 99.0 74 20 140/66 95 Room Air 12/22 2221 99.1 90 20 150/58 98 Room Air 12/22 1402 98.5 85 20 132/90 100 Room Air 12/22 0917 98.2 12/22 0818 100.6 12/22 0817 80 122/50 Intake & Output 12/23 0800 12/23 0000 12/22 1600 Intake Total 620 730 320 Output Total 200 Balance 620 730 120 Intake, IV 260 250 20 Intake, Oral 360 480 300 Number 1 Bowel Movements Output, Urine 200 Physical Exam General Appearance: Alert, Oriented X3, Cooperative, No Acute Distress Assessment/Plan Assessment: 82-year-old female with past medical history hypertension, hyperlipidemia, hypothyroidism(on levothyroxine), CKD stage III, anxiety, depression, spinal stenosis(status post surgery in 2012), DVT status post IVC(no blood thinner), uterine cancer(status post hysterectomy) presented to emergency department with a complaint of progressive swelling and redness of the left index finger since 1 month. problems list: *cellulitis of left index finger *Failure of antibiotic treatment Cellulitis of the left index finger: The patient clinical signs symptoms is more consistent with cellulitis of the left index finger. The predisposing factor or cellulitis in this patient as his comorbidities and finger puncture by steel scrubber splinter. This patient having no leukocytosis, systemic symptoms like fever, hypotension. She had one episode of hyperthermia her temperature was 100.6 Fahrenheit yesterday. She will be discharge home today as she remain afebrile for the last 24 hours. Her temperature is 99F. *Failure of antibiotic treatment: As patient took keflex on out patient basis,but it doesnot work, so he need to be admitted to hospital for IV antibiotic and also the loaction of cellulitis is on hands where chances of spreading infection is very high so ve have to change the antibiotic and admit the patinet. *Injection Unasyn 3 g every 6 hours *Blood cultures negative *Continue home medication *DNR/DNI *Advance healthy diet *GI/DVT prophylaxsis *Anticipated discharge tomorrow. Problem List: 1. Cellulitis 2. HTN (hypertension) 3. 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 afebrile, vitals stable. 1. Left index finger cellulitis s/p Incision and drainage no doug pus. 2. Failure of outpatient therapy Plan - PO abx transition - Hand elevation - Tylenol for pain - Continue home medications - DVT PPx - anticipate discharge today
[2017-12-23 08:13] VITALS: BP 125/60
--- NOTE | 2017-12-23 09:46 | Discharge Summary ---
Visit Information Visit Dates Admission Date: 12/19/17 Discharge Date: 12/23/2017 Hospital Course Course Attending Physician: Maria Luz Bey MD Primary Care Physician: Heron Chu MD Consulting Request: Consulting Specialty: General Internal Medicine Consulting Physician: Sotero Augustin MD Hospital Course: 82-year-old female with past medical history hypertension, hyperlipidemia, hypothyroidism(on levothyroxine), CKD stage II, anxiety, depression, spinal stenosis(status post surgery in 2012), DVT status post IVC(no blood thinner), uterine cancer(status post hysterectomy) presented emergency department with a complaint of progressive swelling and redness of the left index finger since 1 month, she visited hand surgeon, he advise x-ray to rule out foreign body but there was no foreign body. Patient was started on Keflex but the pain and redness was not subsiding . Patient referred to emergency department for further management . At the time of presentation to emergency department her labs were significant for derange renal function test the creatinine: 1.2, GFR 43, bun: Creatinine= 13.3 In her hemoglobin: 11.2, Her vitals: BP= 178/81, SaO2= 99%, RR: 20, MO: 80, temperature: 98.4. Examination: Left index finger was erythematous, swollen, decreased range of motion, Chest: Bilateral normal air entry Patient was shifted to general medical floor for left index finger cellulitis IV Unasyn antibiotics started, her condition improved. She is vitally stable. There is no fever, no leukocytosis and swelling redness subsided. Patient discharge today on oral antibiotic for 7 days. Allergies: Coded Allergies: No Known Allergies (02/12/16) Disposition Summary Disposition Principal Diagnosis: Left index finger cellulitis Additional Diagnosis: Hypertension Hyperlipidemia Hypothyroidism Discharge Disposition: home or self care Discharge Instructions General Discharge Information Code Status: Do Not Resucitate Patient's Diet: Normal regular diet Patient's Activity: No limitation Follow-Up Instructions/Appts: Follow-up with primary care physician in 1 week Follow with the plastic surgeon In case of any medical attention please contact the primary care physician Medications at Discharge Discharge Medications: Stop taking the following medications: Amoxicillin/Clavulanate Potass (Amox-Clav 875-125 MG Tablet) 875 MG-125 MG TABLET ORAL TWICE DAILY Qty = 14 Continue taking these medications: Levothyroxine Sodium (Levothyroxine Sodium) 50 MCG TABLET 1 Tablet ORAL DAILY Qty = 90 Comments: Last Taken: 12/23/17 Time: 05:16 Atorvastatin Calcium (Atorvastatin Calcium) 80 MG TABLET 80 Milligram ORAL 5 PM Days = 28 Comments: Last Taken: 12/22/17 Time: 16:09 Gabapentin (Gabapentin) 600 MG TABLET 1 Capsule ORAL DAILY Qty = 90 Comments: Last Taken: 12/23/17 Time: 08:11 Tramadol HCl (Tramadol HCl) 50 MG TABLET 1 Tablet ORAL DAILY as needed for PAIN Qty = 90 Comments: NOT GIVEN IN THE HOSPITAL Magnesium Oxide (Magnesium) 400 MG CAPSULE 1 Capsule ORAL DAILY Qty = 15 Comments: MEDICATION HELD Amlodipine Besylate (Amlodipine Besylate) 5 MG TABLET 5 Milligram ORAL DAILY Qty = 30 Instructions: . Comments: Last Taken: 12/23/17 Time: 08:13 Bupropion HCl (Bupropion XL) 150 MG TAB.ER.24H 1 Tablet ORAL Every Morning Qty = 30 Comments: Last Taken:12/23/17 Time:08:13 Ferrous Sulfate (Ferrous Sulfate) 325 MG (65 MG IRON) TABLET 1 Tablet ORAL SuWe Comments: NOT GIVEN. MEDICATION HELD Aspirin (Aspirin*) 81 MG TAB.CHEW 1 Tablet ORAL Every night Comments: Last Taken: 12/22/17 Time: 21:41 Start taking the following new medications: Amoxicillin/Potassium Clav (Augmentin 875-125 Tablet) 875 MG-125 MG TABLET 875 Milligram ORAL TWICE DAILY Qty = 14 No Refills Instructions: .. Comments: . Copies To: Vlad ABEBE,Heron Bey MD,Maria Luz
[2017-12-23] MEDS ORDERED: AUGMENTIN 875-1 EACH PO ×2 (10:06→12:48)
--- NOTE | 2017-12-23 10:41 | Patient Discharge Instructions ---
Discharge Instructions General Discharge Information You were seen/treated for: cellulitis of left index finger You had these procedures: orthpaedic I and D Special Instructions: Follow up with primary doctor in one week. Follow up with primary care Doctor if you need any medical attention. Clean hygene of hands Diet Continue normal diet: Yes Activity Full Activity/No Limits: Yes Acute Coronary Syndrome Inclusion Criteria At DC or during hospital stay patient has or had the following: ACS DIAGNOSIS No Discharge Core Measures Meds if any: Prescribed or Continued at Discharge Meds if any: NOT Prescribed or Continued at Discharge Congestive Heart Failure Inclusion Criteria At DC or during hospital stay patient has or had the following: CHF DIAGNOSIS No Discharge Core Measures Meds if any: Prescribed or Continued at Discharge Meds if any: NOT Prescribed or Continued at Discharge Cerebrovascular accident Inclusion Criteria At DC or during hospital stay patient has or had the following: CVA/TIA Diagnosis No Discharge Core Measures Meds if any: Prescribed or Continued at Discharge Meds if any: NOT Prescribed or Continued at Discharge Venous thromboembolism Inclusion Criteria VTE Diagnosis No VTE Type NONE VTE Confirmed by (Test) NONE Discharge Core Measures - Per Current guidelines, there needs to be overlap - treatment for the first 5 days of Warfarin therapy. - If discharged on Warfarin prior to 5 days of - overlap therapy, the patient will need to be - assessed for post discharge needs including - *Post discharge parental anticoagulation - *Warfarin and/or parental anticoagulation education - *Follow up date to check INR post discharge At least 5 days overlap therapy as Inpatient No Meds if any: Prescribed or Continued at Discharge Note: Overlap Therapy is Warfarin and Anticoagulant Meds if any: NOT Prescribed or Continued at Discharge
== END 2017-12-23 13:11 | DRG 603 ==
LOC: ERH 07:47 → ERHI 14:35 → 2NA 14:35 → ENRESERV 16:26 → ENTRNSPT 17:55 → EDTRNSPT 18:05 → EDTRNSPTSTS 18:05 → 2NA 18:13 → CMPTRNSPT 18:25 → 2NA 12-22 08:04 → ENPENDDIS 12-23 11:02 → ENTRNSPT 12-23 12:57 → EDTRNSPTSTS 12-23 13:04 → EDTRNSPT 12-23 13:04 → 2NA 12-23 13:11 → CMPTRNSPT 12-23 13:32
PROVIDERS: Physician Assistant Medical; Student in an Organized Health Care Education/Training Program
PROC: 0H9GXZZ Drainage of Left Hand Skin, External Approach (ICD-10-PCS; principal; 2017-12-21)
DX: L03.012 Cellulitis of left finger (principal); E78.5 Hyperlipidemia, unspecified; E03.9 Hypothyroidism, unspecified; I12.9 Hypertensive chronic kidney disease with stage 1 through stage 4 chronic kidney disease, or unspecified chronic kidney disease; N18.2 Chronic kidney disease, stage 2 (mild); F41.9 Anxiety disorder, unspecified; F32.9 Major depressive disorder, single episode, unspecified; Z98.1 Arthrodesis status; M48.00 Spinal stenosis, site unspecified; Z95.9 Presence of cardiac and vascular implant and graft, unspecified; Z86.718 Personal history of other venous thrombosis and embolism; Z85.42 Personal history of malignant neoplasm of other parts of uterus; Z90.710 Acquired absence of both cervix and uterus; H26.9 Unspecified cataract; H91.90 Unspecified hearing loss, unspecified ear; Z66 Do not resuscitate
CPT/HCPCS: 2NASP; 36415; 36592; 73140-LT; 82436; 87040; 93005; 93010; 96374; J1644; J3490